=== PATIENT | female | born 1945 | race Hispanic/Latino ===

== ENCOUNTER → 2017-08-01 | Outpatient (CLI) | payer OTHER ==
[~2017-08-01] MED LIST: ACET-66 PO; GLYC1TAB11 PO; LISI40TA4 PO; LOVA40TA2 PO; MVIT PO; NAPR-1023 PO; OMEP40CA37 PO; PARO40TA PO; SOTA80TA PO
== END | disposition home or self-care (01) ==
LOC: SHCH 08:48
PROVIDERS: ATTEND Internal Medicine Cardiovascular Disease
DX: I11.0 Hypertensive heart disease with heart failure (principal); I35.1 Nonrheumatic aortic (valve) insufficiency; Z95.0 Presence of cardiac pacemaker
CPT/HCPCS: 93306

== ENCOUNTER → 2018-01-18 | Outpatient (CLI) | payer OTHER | END | disposition home or self-care (01) | LOC: RAH 07:38 | PROVIDERS: ATTEND Internal Medicine Gastroenterology | DX: K76.0 Fatty (change of) liver, not elsewhere classified (principal); N28.1 Cyst of kidney, acquired; I10 Essential (primary) hypertension; E78.5 Hyperlipidemia, unspecified | CPT/HCPCS: 76700 ==

== ENCOUNTER → 2018-03-12 | Outpatient (CLI) | payer OTHER, MEDICARE ==
[~2018-03-12] MED LIST changes: +REGADENOSON 0.4 MG/5 ML PF SYG IVP SCH
== END | disposition home or self-care (01) ==
LOC: SHCH 08:20
PROVIDERS: ATTEND Internal Medicine Cardiovascular Disease
DX: R06.00 Dyspnea, unspecified (principal); R07.89 Other chest pain; R53.83 Other fatigue
CPT/HCPCS: 78452; 93017; 96374; A9500 ×2; J2785

== ENCOUNTER → 2018-03-19 | Outpatient (CLI) | payer OTHER, MEDICARE ==
[~2018-03-19] MED LIST changes: -REGADENOSON 0.4 MG/5 ML PF SYG IVP SCH
== END | disposition home or self-care (01) ==
LOC: SHCH 10:00
PROVIDERS: ATTEND Internal Medicine Cardiovascular Disease
DX: I87.2 Venous insufficiency (chronic) (peripheral) (principal)
CPT/HCPCS: 93970

== ENCOUNTER → 2019-08-22 | Outpatient (CLI) | payer OTHER, MEDICARE ==
[~2019-08-22] MED LIST changes: +OMEP40CA13 PO; -OMEP40CA37 PO
== END | disposition home or self-care (01) ==
LOC: RAH 08:48
PROVIDERS: ATTEND Internal Medicine
DX: I35.0 Nonrheumatic aortic (valve) stenosis (principal); I11.9 Hypertensive heart disease without heart failure; Z95.0 Presence of cardiac pacemaker
CPT/HCPCS: 71046; 93306; 93356

== ENCOUNTER 2019-09-02 09:37 | Observation (INO) | payer OTHER, MEDICARE ==
[~2019-09-02] VITALS: Ht 160 cm; Wt 82.6 kg
[2019-09-02 09:58] LABS: BASOPHILS % (AUTO) 0.7 % (0.0-5.0); EOSINOPHILS % (AUTO) 1.9 % (0.0-8.0); HEMATOCRIT 38.2 % (36-48); LYMPHOCYTES % (AUTO) 24.2 % (21.0-51.0); MEAN CORPUSCULAR HEMOGLOBIN 31.7 pg (27.0-33.0); MONOCYTES % (AUTO) 6.8 % (3.0-13.0); NEUTROPHILS % (AUTO) 65.9 % (40.0-77.0); PLATELET COUNT (AUTO) 199 K/uL (130-400); RED BLOOD CELL COUNT(AUTO) 3.98 MIL/uL (4.00-5.50); WHITE BLOOD COUNT (AUTO) 9.1 K/uL (4.8-10.8)
[2019-09-02 10:02] LABS: CREATININE 1.2 mg/dL (0.5-1.5); POTASSIUM 4.5 mmol/L (3.5-5.1)
[2019-09-02 10:06] LABS: INR 0.89 (0.85-1.15); PARTIAL THROMBOPLASTIN TIME 24.5 SEC (26.3-35.5); PROTHROMBIN TIME 9.7 SEC (9.6-11.6)
[2019-09-02 10:07] LABS: ALBUMIN 3.8 g/dL (3.5-5.0); BILIRUBIN,TOTAL 0.3 mg/dL (0.2-1.0); TOTAL PROTEIN, SERUM 7.2 g/dL (6.0-8.3)
--- NOTE | 2019-09-02 12:30 | NUR ---
DYSPHAGIA IRA COMPLETED NO S/S OF ASPIRATION AT THIS TIME. RECOMMEND REGULAR SOLIDS, THIN LIQUIDS, PILLS WHOLE WITH LIQUIDS TOLERATED. CORE PASTER REVIEWED RESULTS AND RECOMMENDATIONS WITH Pt AND NURSE MARTIN. Pt WAS EDUCATED ON RISKS AND CONSEQUENCES OF ASPIRATION. ALL QUESTIONS ANSWERED AT THIS TIME. Addendum: 09/02/[address] TYRELL LEÓN Amended: Links added.
[2019-09-02] MEDS ORDERED: SODIUM CHLORIDE 0.9% 10 ML VIAL IVP PRN (14:00)
[2019-09-02] MEDS ORDERED: NITR0.4T SL (15:12)
[2019-09-02] MEDS ORDERED: FAMO40TA7 PO (15:12)
[2019-09-02] MEDS ORDERED: ALLO300T2 PO (15:12)
[2019-09-02] MEDS ORDERED: MONT10TA26 PO (15:12)
[2019-09-02] MEDS ORDERED: GABA300C PO (15:12)
[2019-09-02] MEDS ORDERED: PANT40TA25 PO (15:12)
[2019-09-02] MEDS ORDERED: AMLO2.5T4 PO (15:12)
[2019-09-02] MEDS ORDERED: LOVA40TA2 PO (15:12)
[2019-09-02] MEDS ORDERED: TRAZ-187 PO (15:12)
[2019-09-02] MEDS ORDERED: LORA10TA7 PO (15:12)
[2019-09-02] MEDS ORDERED: ROPI0.5T7 PO (15:12)
[2019-09-02] MEDS ORDERED: PRED10TA3 PO (15:12)
[2019-09-02] MEDS ORDERED: MAG HYDROX/AL HYDROX/SIMETH ES 30 ML SUSP UDCUP PO PRN (15:15)
[2019-09-02] MEDS ORDERED: LACTULOSE 20 GM/30 ML UDCUP PO PRN (15:15)
[2019-09-02] MEDS ORDERED: PANTOPRAZOLE SODIUM 40 MG TABLET.DR PO PRN (15:15)
[2019-09-02] MEDS ORDERED: ONDANSETRON HCL 4 MG/2 ML VIAL IV PRN (15:15)
[2019-09-02] MEDS ORDERED: NITROGLYCERIN 0.4 MG SL TAB SL PRN (15:15)
[2019-09-02] MEDS ORDERED: ACETAMINOPHEN 325 MG TAB PO PRN ×2 (15:15)
[2019-09-02] MEDS ORDERED: LORATADINE 10 MG TABLET PO PRN (15:15)
[2019-09-02] MEDS ORDERED: ROPINIROLE HCL 0.25 MG TABLET PO PRN (15:15)
[2019-09-02 15:25] VITALS: BP 161/80
[2019-09-02] MEDS ORDERED: LIDOCAINE HCL-MPF 1% 2ML VIAL IV PRN (15:30)
[2019-09-02] MEDS ORDERED: POTASSIUM CHLORIDE 10% ELIXIR 20 MEQ/15 ML UDCUP PO PRN (15:30)
[2019-09-02] MEDS ORDERED: POTASSIUM CHLORIDE 20 MEQ ERTAB PO PRN (15:30)
[2019-09-02] MEDS ORDERED: POTASSIUM CHLORIDE 20MEQ/100ML 100 ML IV PRN (15:30)
[2019-09-02] MEDS: SODIUM CHLORIDE 0.9% 1000ML 1,000 ML IV SCH (16:26)
[2019-09-02] MEDS ORDERED: LATA7.5D OP (19:48)
[2019-09-02] MEDS ORDERED: BRIM5DRO4 OP (20:00)
[2019-09-02] MEDS: SOTALOL HCL 80 MG TABLET PO SCH (20:11)
[2019-09-02] MEDS: GABAPENTIN 300 MG CAPSULE PO SCH (20:12)
[2019-09-02 20:37] VITALS: BP 127/67
[2019-09-02] MEDS ORDERED: FAMOTIDINE 20MG TAB 20 MG TAB PO SCH (21:00)
[2019-09-02] MEDS ORDERED: ATORVASTATIN CALCIUM 10 MG TABLET PO SCH (21:00)
[2019-09-03 00:19] VITALS: BP 169/77
[2019-09-03] MEDS: SODIUM CHLORIDE 0.9% 1000ML 1,000 ML IV SCH ×2 (00:49→16:56)
[2019-09-03 04:00] VITALS: BP 136/56
[2019-09-03 08:00] VITALS: BP 139/57
[2019-09-03] MEDS ORDERED: PAROXETINE HCL 20 MG TABLET PO SCH (09:00)
[2019-09-03] MEDS ORDERED: AMLODIPINE BESYLATE 2.5 MG TAB PO SCH (09:00)
[2019-09-03] MEDS ORDERED: MONTELUKAST SODIUM 10 MG TAB PO SCH (09:00)
[2019-09-03] MEDS ORDERED: ALLOPURINOL 300 MG TABLET PO SCH (09:00)
[2019-09-03] MEDS ORDERED: LISINOPRIL 40 MG TABLET PO SCH (09:00)
[2019-09-03] MEDS ORDERED: ASPIRIN 325 MG TABLET PO SCH (09:00)
[2019-09-03] MEDS ORDERED: TRAZODONE HCL 100 MG TABLET PO SCH (09:00)
[2019-09-03] MEDS ORDERED: ENOXAPARIN SODIUM 40 MG/0.4 ML SYRINGE SQ SCH (09:00)
[2019-09-03] MEDS ORDERED: GLUCAGON 1MG KIT 1 MG ML IM PRN (09:15)
[2019-09-03] MEDS ORDERED: DEXTROSE 50%-WATER 50 ML DISP.SYRIN IV PRN (09:15)
[2019-09-03] MEDS: SOTALOL HCL 80 MG TABLET PO SCH (09:39)
[2019-09-03] MEDS: GABAPENTIN 300 MG CAPSULE PO SCH ×2 (09:40→14:36)
--- NOTE | 2019-09-03 10:55 | NUR ---
DCP CM spoke to pt's son Justin Jones [phone] discussed dc plans. Per son, pt is semi-independent prior to admission, lives at home alone, son and family lives next door to pt. Pt has a walker, electric wheelchair, as well as handicapped restroom w/bench. Denies any other equipments/services. Feels safe to go back home, son and family able to assist with transportation and needs as necessary. Discussed possible short term rehab for PT, son verbalized he prefers to take pt home due to covid, pt has good support system, agreeable to HH for PT if necessary, will decide once MD give recommendations. Pt currently pending PT eval today. DC plan to home vs home w/HH. CM to cont to follow up. Addendum: 09/03/19 at 1058 by NICKOLAS GRAY LVN CM Amended: Links added.
[2019-09-03 11:09] LABS: APPEARANCE,URINE Cloudy (CLEAR); BILIRUBIN,URINE Negative (NEGATIVE); COLOR,URINE Yellow (YELLOW); GLUCOSE, URINE (UA) Negative (NEGATIVE); KETONES,URINE Negative (NEGATIVE); LEUKOCYTE ESTERASE ,URINE Moderate (NEGATIVE); NITRATE,URINE Positive (NEGATIVE); OCCULT BLOOD,URINE Negative (NEGATIVE); PH,URINE 6.5 (5.0-8.0); PROTEIN,URINE Negative (NEGATIVE); UROBILINOGEN,URINE 0.2 mg/dL (0.2-1.0)
[2019-09-03 11:29] LABS: AMPHET/METH SCREEN,URINE NEGATIVE (NEGATIVE); BARBITURATE SCREEN, URINE NEGATIVE (NEGATIVE); BENZODIAZEPINES SCREEN,URINE NEGATIVE (NEGATIVE); CANNABINOID SCREEN,URINE NEGATIVE (NEGATIVE); COCAINE SCREEN,URINE NEGATIVE (NEGATIVE); OPIATE SCREEN,URINE NEGATIVE (NEGATIVE); PHENCYCLIDINE SCREEN,URINE NEGATIVE (NEGATIVE)
[2019-09-03] MEDS: INSULIN HUMULIN R 100 UNIT/ML 3ML SQ SCH ×2 (11:30→16:30)
[2019-09-03 11:44] LABS: BACTERIA,URINE Many /HPF (None Seen); RBC,URINE 0-1 /HPF (0-1)
[2019-09-03 11:45] LABS: SQUAMOUS EPITHELIAL CELL,UR Rare /HPF (0-2)
[2019-09-03 12:00] VITALS: BP 154/67
[2019-09-03] MEDS ORDERED: IOHEXOL-350 75 ML VIAL IV ONE (12:25)
[2019-09-03 16:00] VITALS: BP 150/83
[2019-09-03] MEDS ORDERED: AEC81 PO (17:13)
[2019-09-03] MEDS ORDERED: CLOP75TA32 PO (17:13)
--- NOTE | 2019-09-03 18:45 | NUR ---
Discharge instructions, new medications and follow up appointments reviewed. Dr. Zamudio's office closed, unable to schedule appointment, patient advised to call office to schedule follow up in 2-3 days. Patient verbalized understanding of instructions and medications. PIV to RAC removed, bleeding controlled and dressing applied. Patient escorted to emergency entrance via wheelchair where family transported to home.
== END 2019-09-03 19:10 | disposition home or self-care (01) ==
LOC: EDH 09:37 → EDHIP 10:50 → 3AH 15:18
PROVIDERS: ADMIT Internal Medicine; ATTEND Internal Medicine
DX: I63.9 Cerebral infarction, unspecified (principal); E11.22 Type 2 diabetes mellitus with diabetic chronic kidney disease; E11.42 Type 2 diabetes mellitus with diabetic polyneuropathy; H40.20X0 Unspecified primary angle-closure glaucoma, stage unspecified; I13.10 Hypertensive heart and chronic kidney disease without heart failure, with stage 1 through stage 4 chronic kidney disease, or unspecified chronic kidney disease; N18.2 Chronic kidney disease, stage 2 (mild); I25.10 Atherosclerotic heart disease of native coronary artery without angina pectoris; E78.2 Mixed hyperlipidemia; F41.9 Anxiety disorder, unspecified; F32.1 Major depressive disorder, single episode, moderate; I48.91 Unspecified atrial fibrillation; I49.5 Sick sinus syndrome; J30.9 Allergic rhinitis, unspecified; J44.9 Chronic obstructive pulmonary disease, unspecified; K21.9 Gastro-esophageal reflux disease without esophagitis; K44.9 Diaphragmatic hernia without obstruction or gangrene; K90.0 Celiac disease; M19.90 Unspecified osteoarthritis, unspecified site; E04.2 Nontoxic multinodular goiter; R47.02 Dysphasia; M46.1 Sacroiliitis, not elsewhere classified; M48.061 Spinal stenosis, lumbar region without neurogenic claudication; Z79.02 Long term (current) use of antithrombotics/antiplatelets; Z86.73 Personal history of transient ischemic attack (TIA), and cerebral infarction without residual deficits; Z90.49 Acquired absence of other specified parts of digestive tract; Z90.710 Acquired absence of both cervix and uterus; Z95.0 Presence of cardiac pacemaker; K52.9 Noninfective gastroenteritis and colitis, unspecified
CPT/HCPCS: 36415; 70450; 70496; 70498; 71045; 80053; 80305; 81001; 82550; 82948 ×2; 83880; 84484; 85025; 85610; 85730; 87077; 87088; 87186; 92610; 93005; 93880; 96360; 96361 ×2; 96372; 97039; 97116; 97161; 99285; A4600; G0378 ×15; G8978; G8979; G8980; G8981; G8982; G8983; J1650; J7030 ×2; Q9967

== ENCOUNTER → 2019-09-30 | Outpatient (CLI) | payer OTHER, MEDICARE ==
[~2019-09-30] MED LIST changes: -ACET-66 PO; +AEC81 PO; +ALLO300T2 PO; +AMLO2.5T4 PO; +BRIM5DRO4 OP; +CLOP75TA32 PO; +FAMO40TA7 PO; +GABA300C PO; -GLYC1TAB11 PO; +LATA7.5D OP; +LORA10TA7 PO; +MONT10TA26 PO; -MVIT PO; -NAPR-1023 PO; +NITR0.4T SL; -OMEP40CA13 PO; +PANT40TA25 PO; +REGADENOSON 0.4 MG/5 ML PF SYG IVP SCH; +ROPI0.5T7 PO; +TRAZ-187 PO
== END | disposition home or self-care (01) ==
LOC: SHCH 08:04
PROVIDERS: ATTEND Internal Medicine Cardiovascular Disease
DX: I20.9 Angina pectoris, unspecified (principal); R07.9 Chest pain, unspecified; R06.00 Dyspnea, unspecified; R53.83 Other fatigue
CPT/HCPCS: 78452; 93017; A9500 ×2; J2785; 96374

== ENCOUNTER 2020-03-04 16:41 | Inpatient (IN) | payer OTHER, MEDICARE ==
[~2020-03-04] VITALS: Ht 165.1 cm; Wt 81.6 kg
[~2020-03-04 16:41] MED LIST changes: -MONT10TA26 PO; +MONT10TA96 PO; -PANT40TA25 PO; +PANT40TA54 PO; -REGADENOSON 0.4 MG/5 ML PF SYG IVP SCH
[2020-03-04 17:41] LABS: BASOPHILS % (AUTO) 0.2 % (0.0-5.0); HEMATOCRIT 38.7 % (36-48); LYMPHOCYTES % (AUTO) 13.8 % (21.0-51.0); MEAN CORPUSCULAR HEMOGLOBIN 32.4 pg (27.0-33.0); MEAN CORPUSCULAR HGB CONC 34.1 g/dL (32.0-36.0); MEAN CORPUSCULAR VOLUME 95.1 fL (79-99); MONOCYTES % (AUTO) 4.4 % (3.0-13.0); NEUTROPHILS % (AUTO) 80.9 % (40.0-77.0); PLATELET COUNT (AUTO) 248 K/uL (130-400); RED BLOOD CELL COUNT(AUTO) 4.07 MIL/uL (4.00-5.50); RED CELL DISTRIBUTION WIDTH 12.9 % (11.0-15.5); WHITE BLOOD COUNT (AUTO) 9.5 K/uL (4.8-10.8)
[2020-03-04] MEDS ORDERED: DEXAMETHASONE SOD PHOSPHATE 10MG/ML 1ML VIAL ONE (17:43)
[2020-03-04] MEDS ORDERED: ALBUTEROL INHALER 90MCG/INH IH ONE (17:43)
[2020-03-04 17:44] LABS: ABG BASE EXCESS -6.3 mmol/L (-2.0-3.0); ABG HCO3 16.9 mmol/L (21.0-28.0); ABG OXYGEN SATURATION 84.2 % (95.0-99.0); ABG PCO2 28 mmHg (32-45)
[2020-03-04] MEDS ORDERED: AZITHROMYCIN 500MG+NS 250ML 250 ML IV ONE (17:44)
[2020-03-04] MEDS ORDERED: CEFTRIAXONE SODIUM 1 GM ONE (17:44)
[2020-03-04] MEDS ORDERED: SODIUM CHLORIDE 0.9% 50 ML IV ONE ×2 (17:45→18:45)
[2020-03-04 17:51] LABS: INR 0.94 (0.85-1.15); PARTIAL THROMBOPLASTIN TIME 29.6 SEC (26.3-35.5); PROTHROMBIN TIME 10.2 SEC (9.6-11.6)
[2020-03-04 18:04] LABS: ALANINE AMINOTRANSFERASE 172 U/L (12-78); ALBUMIN 3.3 g/dL (3.5-5.0); ASPARTATE AMINOTRANSFERASE 237 U/L (10-37); BILIRUBIN,TOTAL 0.6 mg/dL (0.2-1.0); CARBON DIOXIDE 21 mmol/L (21-32); CHLORIDE 94 mmol/L (101-111); CREATINE KINASE, TOTAL 233 U/L (21-232); CREATININE 5.2 mg/dL (0.5-1.5); GLOMERULAR FILTR. RATE CALC 9 mL/min (>60); GLUCOSE,RANDOM 132 mg/dL (70-105); LACTATE DEHYDROGENASE 579 U/L (81-234); MYOGLOBIN 866 ng/mL (10-92); SODIUM SERUM 132 mmol/L (136-145); TOTAL PROTEIN, SERUM 8.5 g/dL (6.0-8.3); TROPONIN I < 0.04 ng/mL (0.00-0.06); UREA NITROGEN, BLOOD 69 mg/dL (7-18)
[2020-03-04 18:07] LABS: POTASSIUM 2.8 mmol/L (3.5-5.1)
[2020-03-04] MEDS ORDERED: POTASSIUM CHLORIDE 20 MEQ ERTAB PO ONE (18:27)
[2020-03-04] MEDS ORDERED: POTASSIUM CHLORIDE 20MEQ/100ML 100 ML IV ONE (18:38)
[2020-03-04] MEDS ORDERED: LIDOCAINE HCL-MPF 1% 2ML VIAL ONE (18:43)
[2020-03-04 18:52] LABS: ERYTHROCYTE SEDIMENTATION RATE 104 MM/HR (0-30)
[2020-03-04] MEDS: INSULIN HUMULIN R 100 UNIT/ML 3ML SQ SCH (21:00)
[2020-03-04] MEDS ORDERED: ERGOCALCIFEROL (VITAMIN D2) 50,000 UNIT CAPSULE PO ONE (21:00)
[2020-03-04] MEDS: CEFTRIAXONE SODIUM 1 GM IV SCH (21:00)
[2020-03-04] MEDS ORDERED: ONDANSETRON HCL 4 MG/2 ML VIAL IV PRN (21:00)
[2020-03-04] MEDS ORDERED: HYDRALAZINE HCL 20 MG/ML VIAL IV PRN (21:00)
[2020-03-04] MEDS: PHARMACY COMMUNICATION MISC SCH (21:00)
[2020-03-04] MEDS ORDERED: ALBUTEROL INHALER 90MCG/INH IH PRN (21:00)
[2020-03-04] MEDS ORDERED: ACETAMINOPHEN 325 MG TAB PO PRN (21:00)
[2020-03-04] MEDS ORDERED: LACTULOSE 20 GM/30 ML UDCUP PO PRN (21:00)
[2020-03-04] MEDS ORDERED: DEXTROSE 50%-WATER 50 ML DISP.SYRIN IV PRN (21:00)
[2020-03-04] MEDS: METHYLPREDNISOLONE SOD SUCC 40MG/ML 1ML IVP SCH (21:00)
[2020-03-04] MEDS ORDERED: GLUCAGON 1MG KIT 1 MG ML IM PRN (21:00)
[2020-03-04] MEDS: AZITHROMYCIN 500MG+NS 250ML 250 ML IV SCH (21:00)
[2020-03-04] MEDS: HEPARIN SODIUM 5000UNIT/ML 1ML VIAL SQ SCH (21:45)
[2020-03-04] MEDS ORDERED: HEPARIN SODIUM 5000UNIT/ML 1ML VIAL ONE (22:21)
[2020-03-05] VITALS (7 sets, daily range): BP systolic 93–123; BP diastolic 35–65
[2020-03-05 04:36] LABS: BASOPHILS % (AUTO) 0.2 % (0.0-5.0); HEMATOCRIT 34.9 % (36-48); LYMPHOCYTES % (AUTO) 9.6 % (21.0-51.0); MEAN CORPUSCULAR HEMOGLOBIN 31.8 pg (27.0-33.0); MEAN CORPUSCULAR HGB CONC 33.2 g/dL (32.0-36.0); MEAN CORPUSCULAR VOLUME 95.6 fL (79-99); MONOCYTES % (AUTO) 1.6 % (3.0-13.0); NEUTROPHILS % (AUTO) 88.1 % (40.0-77.0); PLATELET COUNT (AUTO) 267 K/uL (130-400); RED BLOOD CELL COUNT(AUTO) 3.65 MIL/uL (4.00-5.50); RED CELL DISTRIBUTION WIDTH 12.7 % (11.0-15.5); WHITE BLOOD COUNT (AUTO) 6.2 K/uL (4.8-10.8)
[2020-03-05 05:00] LABS: ALBUMIN 2.8 g/dL (3.5-5.0); BILIRUBIN,TOTAL 0.4 mg/dL (0.2-1.0); CREATININE 5.7 mg/dL (0.5-1.5); CRP QUANTITATIVE 207.3 mg/L (0.00-9.0); POTASSIUM 3.5 mmol/L (3.5-5.1); TOTAL PROTEIN, SERUM 7.5 g/dL (6.0-8.3)
[2020-03-05] MEDS: PHARMACY COMMUNICATION MISC SCH ×3 (05:00→21:00)
[2020-03-05] MEDS ORDERED: METHYLPREDNISOLONE SOD SUCC 125MG/2ML VIAL ONE (06:05)
[2020-03-05] MEDS: INSULIN HUMULIN R 100 UNIT/ML 3ML SQ SCH ×4 (06:14→21:23)
[2020-03-05] MEDS: METHYLPREDNISOLONE SOD SUCC 40MG/ML 1ML IVP SCH (06:42)
[2020-03-05] MEDS ORDERED: ENOXAPARIN SODIUM 40 MG/0.4 ML SYRINGE SQ SCH (09:00)
[2020-03-05] MEDS: SODIUM CHLORIDE 0.9% 1000ML 1,000 ML IV SCH (09:52)
[2020-03-05] MEDS: Vitamin B Complex/Vit C/Folic Acid PO SCH (09:53)
[2020-03-05] MEDS: ASCORBIC ACID 500 MG TAB PO SCH (09:53)
[2020-03-05] MEDS: FAMOTIDINE 20MG TAB 20 MG TAB PO SCH (09:53)
[2020-03-05] MEDS: ZINC SULFATE 220 CAPSULE PO SCH (09:54)
[2020-03-05] MEDS: HEPARIN SODIUM 5000UNIT/ML 1ML VIAL SQ SCH ×2 (10:05→21:22)
[2020-03-05] MEDS: DEXAMETHASONE SOD PHOSPHATE 4 MG/ML 1ML VIAL IVP SCH ×2 (10:14→21:21)
[2020-03-05 14:22] LABS: CREATININE,URINE RANDOM 278 mg/dL (30-135); SODIUM,URINE RANDOM 32 mmol/l (40-220)
[2020-03-05] MEDS ORDERED: SODIUM CHLORIDE 0.9% 250 ML IV ONE (14:50)
[2020-03-05] MEDS ORDERED: ROPINIROLE HCL 0.25 MG TABLET PO PRN (18:00)
[2020-03-05] MEDS: CEFTRIAXONE SODIUM 1 GM IV SCH (21:20)
[2020-03-05] MEDS: AZITHROMYCIN 500MG+NS 250ML 250 ML IV SCH (21:20)
[2020-03-05] MEDS: GABAPENTIN 300 MG CAPSULE PO SCH (21:21)
[2020-03-05 22:04] LABS: APPEARANCE,URINE SL CLOUDY (CLEAR); BILIRUBIN,URINE NEGATIVE (NEGATIVE); COLOR,URINE YELLOW (YELLOW); GLUCOSE, URINE (UA) NEGATIVE (NEGATIVE); KETONES,URINE NEGATIVE (NEGATIVE); LEUKOCYTE ESTERASE ,URINE NEGATIVE (NEGATIVE); NITRATE,URINE NEGATIVE (NEGATIVE); OCCULT BLOOD,URINE MODERATE (NEGATIVE); PROTEIN,URINE NEGATIVE (NEGATIVE); UROBILINOGEN,URINE 0.2 mg/dL (0.2-1.0)
[2020-03-05 22:09] LABS: AMORPHOUS SEDIMENT,UR Few /LPF (None Seen); BACTERIA,URINE Few /HPF (None Seen); MUCUS,URINE Few LPF (None Seen); SQUAMOUS EPITHELIAL CELL,UR 0-2 /HPF (0-2)
[2020-03-06 03:29] VITALS: BP 120/59
[2020-03-06] MEDS: SODIUM CHLORIDE 0.9% 1000ML 1,000 ML IV SCH (04:00)
[2020-03-06] MEDS: PHARMACY COMMUNICATION MISC SCH ×4 (04:05→23:09)
[2020-03-06 04:54] LABS: ABG BASE EXCESS -7.2 mmol/L (-2.0-3.0); ABG HCO3 16.4 mmol/L (21.0-28.0); ABG OXYGEN SATURATION 91.3 % (95.0-99.0); ABG PCO2 29 mmHg (32-45)
[2020-03-06 05:20] LABS: BASOPHILS % (AUTO) 0.1 % (0.0-5.0); HEMATOCRIT 36.3 % (36-48); LYMPHOCYTES % (AUTO) 5.8 % (21.0-51.0); MEAN CORPUSCULAR HGB CONC 33.3 g/dL (32.0-36.0); MONOCYTES % (AUTO) 3.6 % (3.0-13.0); NEUTROPHILS % (AUTO) 89.8 % (40.0-77.0); PLATELET COUNT (AUTO) 262 K/uL (130-400); RED BLOOD CELL COUNT(AUTO) 3.78 MIL/uL (4.00-5.50); RED CELL DISTRIBUTION WIDTH 12.6 % (11.0-15.5); WHITE BLOOD COUNT (AUTO) 14.3 K/uL (4.8-10.8)
[2020-03-06 05:39] LABS: ALBUMIN 2.9 g/dL (3.5-5.0); BILIRUBIN,TOTAL 0.2 mg/dL (0.2-1.0); CREATININE 4.5 mg/dL (0.5-1.5); CRP QUANTITATIVE 87.3 mg/L (0.00-9.0); MAGNESIUM 2.6 mg/dL (1.80-2.40); PHOSPHORUS 4.2 mg/dL (2.5-4.9); POTASSIUM 3.2 mmol/L (3.5-5.1); TOTAL PROTEIN, SERUM 7.9 g/dL (6.0-8.3); URIC ACID 8.9 mg/dL (2.6-7.2)
[2020-03-06] MEDS: INSULIN HUMULIN R 100 UNIT/ML 3ML SQ SCH ×4 (06:20→22:25)
[2020-03-06 06:45] LABS: HEMOGLOBIN A1C 7.1 % (4.0-6.0)
[2020-03-06 08:00] VITALS: BP 110/68
[2020-03-06] MEDS: Vitamin B Complex/Vit C/Folic Acid PO SCH (09:24)
[2020-03-06] MEDS: ASCORBIC ACID 500 MG TAB PO SCH (09:24)
[2020-03-06] MEDS: FAMOTIDINE 20MG TAB 20 MG TAB PO SCH (09:24)
[2020-03-06] MEDS: GABAPENTIN 300 MG CAPSULE PO SCH ×3 (09:25→22:24)
[2020-03-06] MEDS: ZINC SULFATE 220 CAPSULE PO SCH (09:25)
[2020-03-06] MEDS: DEXAMETHASONE SOD PHOSPHATE 4 MG/ML 1ML VIAL IVP SCH ×2 (09:25→22:23)
[2020-03-06] MEDS: HEPARIN SODIUM 5000UNIT/ML 1ML VIAL SQ SCH ×2 (10:04→22:26)
[2020-03-06 12:00] VITALS: BP 117/64
[2020-03-06 16:00] VITALS: BP 105/62
[2020-03-06 20:57] VITALS: BP 129/70
[2020-03-06 21:06] LABS: BASOPHILS % (AUTO) 0.1 % (0.0-5.0); HEMATOCRIT 33.9 % (36-48); LYMPHOCYTES % (AUTO) 4.8 % (21.0-51.0); MEAN CORPUSCULAR HEMOGLOBIN 31.9 pg (27.0-33.0); MEAN CORPUSCULAR HGB CONC 33.6 g/dL (32.0-36.0); NEUTROPHILS % (AUTO) 90.3 % (40.0-77.0); PLATELET COUNT (AUTO) 290 K/uL (130-400); RED BLOOD CELL COUNT(AUTO) 3.57 MIL/uL (4.00-5.50); RED CELL DISTRIBUTION WIDTH 12.7 % (11.0-15.5); WHITE BLOOD COUNT (AUTO) 14.5 K/uL (4.8-10.8)
[2020-03-06] MEDS: CEFTRIAXONE SODIUM 1 GM IV SCH (22:23)
[2020-03-06] MEDS: AZITHROMYCIN 500MG+NS 250ML 250 ML IV SCH (22:23)
[2020-03-06] MEDS: SODIUM BICARBONATE 650 MG TAB PO SCH (22:24)
[2020-03-07] VITALS (7 sets, daily range): BP systolic 115–143; BP diastolic 53–82
[2020-03-07 05:03] LABS: BASOPHILS % (AUTO) 0.1 % (0.0-5.0); HEMATOCRIT 33.8 % (36-48); LYMPHOCYTES % (AUTO) 5.3 % (21.0-51.0); MEAN CORPUSCULAR HEMOGLOBIN 32.6 pg (27.0-33.0); MEAN CORPUSCULAR HGB CONC 34.3 g/dL (32.0-36.0); MEAN CORPUSCULAR VOLUME 94.9 fL (79-99); MONOCYTES % (AUTO) 3.5 % (3.0-13.0); NEUTROPHILS % (AUTO) 89.4 % (40.0-77.0); PLATELET COUNT (AUTO) 310 K/uL (130-400); RED BLOOD CELL COUNT(AUTO) 3.56 MIL/uL (4.00-5.50); RED CELL DISTRIBUTION WIDTH 12.7 % (11.0-15.5); WHITE BLOOD COUNT (AUTO) 13.3 K/uL (4.8-10.8)
[2020-03-07 05:22] LABS: ALBUMIN 2.5 g/dL (3.5-5.0); BILIRUBIN,TOTAL 0.2 mg/dL (0.2-1.0); CRP QUANTITATIVE 46.9 mg/L (0.00-9.0); POTASSIUM 3.4 mmol/L (3.5-5.1)
[2020-03-07] MEDS: INSULIN HUMULIN R 100 UNIT/ML 3ML SQ SCH ×4 (06:30→21:17)
[2020-03-07] MEDS: Vitamin B Complex/Vit C/Folic Acid PO SCH (08:47)
[2020-03-07] MEDS: SODIUM BICARBONATE 650 MG TAB PO SCH ×2 (08:47→20:34)
[2020-03-07] MEDS: FAMOTIDINE 20MG TAB 20 MG TAB PO SCH (08:48)
[2020-03-07] MEDS: ZINC SULFATE 220 CAPSULE PO SCH (08:48)
[2020-03-07] MEDS: ASCORBIC ACID 500 MG TAB PO SCH (08:48)
[2020-03-07] MEDS: DEXAMETHASONE SOD PHOSPHATE 4 MG/ML 1ML VIAL IVP SCH ×2 (08:48→20:33)
[2020-03-07] MEDS: GABAPENTIN 300 MG CAPSULE PO SCH ×3 (08:54→20:35)
[2020-03-07] MEDS: HEPARIN SODIUM 5000UNIT/ML 1ML VIAL SQ SCH ×2 (08:55→21:16)
[2020-03-07] MEDS: PHARMACY COMMUNICATION MISC SCH (13:00)
[2020-03-07] MEDS: AZITHROMYCIN 500MG+NS 250ML 250 ML IV SCH (20:32)
[2020-03-07] MEDS: CEFTRIAXONE SODIUM 1 GM IV SCH (20:32)
[2020-03-07 21:00] LABS: BASOPHILS % (AUTO) 0.4 % (0.0-5.0); LYMPHOCYTES % (AUTO) 5.6 % (21.0-51.0); MEAN CORPUSCULAR HEMOGLOBIN 32.1 pg (27.0-33.0); MEAN CORPUSCULAR HGB CONC 33.3 g/dL (32.0-36.0); MEAN CORPUSCULAR VOLUME 96.3 fL (79-99); MONOCYTES % (AUTO) 5.8 % (3.0-13.0); NEUTROPHILS % (AUTO) 85.5 % (40.0-77.0); PLATELET COUNT (AUTO) 300 K/uL (130-400); RED BLOOD CELL COUNT(AUTO) 3.74 MIL/uL (4.00-5.50); RED CELL DISTRIBUTION WIDTH 12.9 % (11.0-15.5); WHITE BLOOD COUNT (AUTO) 13.4 K/uL (4.8-10.8)
[2020-03-08] VITALS (7 sets, daily range): BP systolic 130–160; BP diastolic 53–85
[2020-03-08 05:05] LABS: CREATININE 2.3 mg/dL (0.5-1.5); CRP QUANTITATIVE 33.3 mg/L (0.00-9.0); POTASSIUM 3.4 mmol/L (3.5-5.1)
[2020-03-08] MEDS: INSULIN HUMULIN R 100 UNIT/ML 3ML SQ SCH ×5 (06:44→22:03)
[2020-03-08] MEDS ORDERED: DEXAMETHASONE 4 MG TAB PO SCH (09:00)
[2020-03-08] MEDS: Vitamin B Complex/Vit C/Folic Acid PO SCH (09:18)
[2020-03-08] MEDS: ZINC SULFATE 220 CAPSULE PO SCH (09:18)
[2020-03-08] MEDS: SODIUM BICARBONATE 650 MG TAB PO SCH ×2 (09:18→21:11)
[2020-03-08] MEDS: FAMOTIDINE 20MG TAB 20 MG TAB PO SCH (09:18)
[2020-03-08] MEDS: PHARMACY COMMUNICATION MISC SCH ×4 (09:18→19:52)
[2020-03-08] MEDS: ASCORBIC ACID 500 MG TAB PO SCH (09:19)
[2020-03-08] MEDS: GABAPENTIN 300 MG CAPSULE PO SCH ×3 (09:19→21:11)
[2020-03-08] MEDS: DEXAMETHASONE SOD PHOSPHATE 4 MG/ML 1ML VIAL IVP SCH ×2 (09:20→21:11)
[2020-03-08] MEDS: HEPARIN SODIUM 5000UNIT/ML 1ML VIAL SQ SCH ×2 (09:21→21:28)
[2020-03-08] MEDS: ACETAMINOPHEN 325 MG TAB PO PRN (18:46)
[2020-03-08] MEDS: AZITHROMYCIN 500MG+NS 250ML 250 ML IV SCH (21:10)
[2020-03-08] MEDS: CEFTRIAXONE SODIUM 1 GM IV SCH (21:10)
[2020-03-08] MEDS: INSULIN GLARGINE 100 UNITS/ML 10 ML VIAL SQ SCH (21:28)
[2020-03-09 03:31] VITALS: BP 130/72
[2020-03-09] MEDS: PHARMACY COMMUNICATION MISC SCH ×3 (05:00→21:00)
[2020-03-09 06:00] LABS: HEMATOCRIT 37.3 % (36-48); MEAN CORPUSCULAR HEMOGLOBIN 32.2 pg (27.0-33.0); MEAN CORPUSCULAR HGB CONC 34.3 g/dL (32.0-36.0); PLATELET COUNT (AUTO) 332 K/uL (130-400); RED BLOOD CELL COUNT(AUTO) 3.97 MIL/uL (4.00-5.50); RED CELL DISTRIBUTION WIDTH 12.6 % (11.0-15.5); WHITE BLOOD COUNT (AUTO) 13.2 K/uL (4.8-10.8)
[2020-03-09 06:01] LABS: BASOPHILS % (AUTO) 0.7 % (0.0-5.0); LYMPHOCYTES % (AUTO) 7.5 % (21.0-51.0); MONOCYTES % (AUTO) 4.2 % (3.0-13.0); NEUTROPHILS % (AUTO) 81.9 % (40.0-77.0)
[2020-03-09 06:12] LABS: CRP QUANTITATIVE 18.5 mg/L (0.00-9.0)
[2020-03-09] MEDS: INSULIN HUMULIN R 100 UNIT/ML 3ML SQ SCH ×7 (06:17→21:45)
[2020-03-09 07:13] LABS: ERYTHROCYTE SEDIMENTATION RATE 105 MM/HR (0-30)
[2020-03-09 08:00] VITALS: BP 94/56
[2020-03-09] MEDS: Vitamin B Complex/Vit C/Folic Acid PO SCH (09:04)
[2020-03-09] MEDS: ZINC SULFATE 220 CAPSULE PO SCH (09:04)
[2020-03-09] MEDS: GABAPENTIN 300 MG CAPSULE PO SCH ×3 (09:04→21:06)
[2020-03-09] MEDS: SODIUM BICARBONATE 650 MG TAB PO SCH ×2 (09:04→21:05)
[2020-03-09] MEDS: FAMOTIDINE 20MG TAB 20 MG TAB PO SCH (09:04)
[2020-03-09] MEDS: ASCORBIC ACID 500 MG TAB PO SCH (09:05)
[2020-03-09] MEDS: DEXAMETHASONE SOD PHOSPHATE 4 MG/ML 1ML VIAL IVP SCH ×2 (09:05→21:06)
[2020-03-09] MEDS: HEPARIN SODIUM 5000UNIT/ML 1ML VIAL SQ SCH ×2 (09:08→21:17)
[2020-03-09 12:08] LABS: CREATININE 1.8 mg/dL (0.5-1.5); POTASSIUM 3.4 mmol/L (3.5-5.1)
[2020-03-09 12:51] VITALS: BP 134/72
[2020-03-09 16:36] VITALS: BP 141/77
[2020-03-09 20:21] VITALS: BP 155/72
[2020-03-09] MEDS: CEFTRIAXONE SODIUM 1 GM IV SCH (21:05)
[2020-03-09] MEDS: AZITHROMYCIN 500MG+NS 250ML 250 ML IV SCH (21:05)
[2020-03-09] MEDS: INSULIN GLARGINE 100 UNITS/ML 10 ML VIAL SQ SCH (21:46)
[2020-03-10 01:38] VITALS: BP 143/72
[2020-03-10 04:11] VITALS: BP 183/77
[2020-03-10] MEDS: PHARMACY COMMUNICATION MISC SCH ×3 (05:00→21:18)
[2020-03-10 05:22] LABS: BASOPHILS % (AUTO) 0.2 % (0.0-5.0); HEMATOCRIT 38.4 % (36-48); MEAN CORPUSCULAR HEMOGLOBIN 31.6 pg (27.0-33.0); MEAN CORPUSCULAR HGB CONC 33.9 g/dL (32.0-36.0); MEAN CORPUSCULAR VOLUME 93.4 fL (79-99); MONOCYTES % (AUTO) 3.4 % (3.0-13.0); NEUTROPHILS % (AUTO) 80.2 % (40.0-77.0); NUCLEATED RED BLOOD CELLS 0.3 % (0.0-0.19); PLATELET COUNT (AUTO) 344 K/uL (130-400); RED BLOOD CELL COUNT(AUTO) 4.11 MIL/uL (4.00-5.50); RED CELL DISTRIBUTION WIDTH 12.4 % (11.0-15.5); WHITE BLOOD COUNT (AUTO) 15.2 K/uL (4.8-10.8)
[2020-03-10 06:01] LABS: ALBUMIN 2.7 g/dL (3.5-5.0); BILIRUBIN,TOTAL 0.3 mg/dL (0.2-1.0); CREATININE 1.6 mg/dL (0.5-1.5); CRP QUANTITATIVE 16.9 mg/L (0.00-9.0); POTASSIUM 3.7 mmol/L (3.5-5.1); TOTAL PROTEIN, SERUM 7.5 g/dL (6.0-8.3)
[2020-03-10] MEDS: INSULIN HUMULIN R 100 UNIT/ML 3ML SQ SCH ×7 (06:32→21:18)
[2020-03-10 08:00] VITALS: BP 138/73
[2020-03-10] MEDS: FAMOTIDINE 20MG TAB 20 MG TAB PO SCH (09:17)
[2020-03-10] MEDS: GABAPENTIN 300 MG CAPSULE PO SCH ×3 (09:17→21:15)
[2020-03-10] MEDS: SODIUM BICARBONATE 650 MG TAB PO SCH (09:17)
[2020-03-10] MEDS: DEXAMETHASONE SOD PHOSPHATE 4 MG/ML 1ML VIAL IVP SCH ×2 (09:17→21:15)
[2020-03-10] MEDS: ZINC SULFATE 220 CAPSULE PO SCH (09:17)
[2020-03-10] MEDS: Vitamin B Complex/Vit C/Folic Acid PO SCH (09:17)
[2020-03-10] MEDS: ASCORBIC ACID 500 MG TAB PO SCH (09:17)
[2020-03-10] MEDS: HEPARIN SODIUM 5000UNIT/ML 1ML VIAL SQ SCH ×2 (09:40→21:19)
[2020-03-10 11:46] VITALS: BP 158/92
[2020-03-10 16:04] LABS: CREATININE 1.7 mg/dL (0.5-1.5); POTASSIUM 3.9 mmol/L (3.5-5.1)
[2020-03-10 16:49] VITALS: BP 159/73
[2020-03-10 20:19] VITALS: BP 115/62
[2020-03-10] MEDS: AZITHROMYCIN 500MG+NS 250ML 250 ML IV SCH (21:15)
[2020-03-10] MEDS: CEFTRIAXONE SODIUM 1 GM IV SCH (21:15)
[2020-03-10] MEDS: INSULIN GLARGINE 100 UNITS/ML 10 ML VIAL SQ SCH (21:17)
[2020-03-11] VITALS (7 sets, daily range): BP systolic 118–168; BP diastolic 61–97
[2020-03-11] MEDS: PHARMACY COMMUNICATION MISC SCH ×2 (02:18→13:00)
[2020-03-11 04:19] LABS: BASOPHILS % (AUTO) 0.8 % (0.0-5.0); HEMATOCRIT 35.6 % (36-48); LYMPHOCYTES % (AUTO) 7.8 % (21.0-51.0); MEAN CORPUSCULAR HEMOGLOBIN 31.5 pg (27.0-33.0); MEAN CORPUSCULAR HGB CONC 33.7 g/dL (32.0-36.0); MEAN CORPUSCULAR VOLUME 93.4 fL (79-99); MONOCYTES % (AUTO) 2.9 % (3.0-13.0); NEUTROPHILS % (AUTO) 78.6 % (40.0-77.0); NUCLEATED RED BLOOD CELLS 0.2 % (0.0-0.19); PLATELET COUNT (AUTO) 299 K/uL (130-400); RED BLOOD CELL COUNT(AUTO) 3.81 MIL/uL (4.00-5.50); RED CELL DISTRIBUTION WIDTH 12.4 % (11.0-15.5); WHITE BLOOD COUNT (AUTO) 14.8 K/uL (4.8-10.8)
[2020-03-11 04:58] LABS: ALBUMIN 2.5 g/dL (3.5-5.0); BILIRUBIN,TOTAL 0.3 mg/dL (0.2-1.0); CREATININE 1.8 mg/dL (0.5-1.5); CRP QUANTITATIVE 15.7 mg/L (0.00-9.0); POTASSIUM 3.7 mmol/L (3.5-5.1); TOTAL PROTEIN, SERUM 6.8 g/dL (6.0-8.3)
[2020-03-11] MEDS: INSULIN HUMULIN R 100 UNIT/ML 3ML SQ SCH ×7 (06:02→20:55)
[2020-03-11] MEDS: Vitamin B Complex/Vit C/Folic Acid PO SCH (08:43)
[2020-03-11] MEDS: ZINC SULFATE 220 CAPSULE PO SCH (08:43)
[2020-03-11] MEDS: FAMOTIDINE 20MG TAB 20 MG TAB PO SCH (08:43)
[2020-03-11] MEDS: GABAPENTIN 300 MG CAPSULE PO SCH ×3 (08:43→20:41)
[2020-03-11] MEDS: HEPARIN SODIUM 5000UNIT/ML 1ML VIAL SQ SCH ×2 (08:44→20:43)
[2020-03-11] MEDS: ASCORBIC ACID 500 MG TAB PO SCH (08:44)
[2020-03-11] MEDS: DEXAMETHASONE SOD PHOSPHATE 4 MG/ML 1ML VIAL IVP SCH ×2 (08:44→20:41)
[2020-03-11] MEDS: AZITHROMYCIN 500MG+NS 250ML 250 ML IV SCH (20:36)
[2020-03-11] MEDS: CEFTRIAXONE SODIUM 1 GM IV SCH (20:36)
[2020-03-11] MEDS: INSULIN GLARGINE 100 UNITS/ML 10 ML VIAL SQ SCH (20:49)
[2020-03-12 03:00] VITALS: BP 179/79
[2020-03-12] MEDS ORDERED: CLONIDINE HCL 0.1 MG TABLET PO PRN (03:45)
[2020-03-12] MEDS ORDERED: CLONIDINE HCL 0.1 MG TABLET ONE (03:48)
[2020-03-12 05:10] LABS: HEMATOCRIT 34.4 % (36-48); MEAN CORPUSCULAR HEMOGLOBIN 31.7 pg (27.0-33.0); MEAN CORPUSCULAR VOLUME 93.2 fL (79-99); NUCLEATED RED BLOOD CELLS 0.2 % (0.0-0.19); PLATELET COUNT (AUTO) 265 K/uL (130-400); RED BLOOD CELL COUNT(AUTO) 3.69 MIL/uL (4.00-5.50); RED CELL DISTRIBUTION WIDTH 12.2 % (11.0-15.5); WHITE BLOOD COUNT (AUTO) 17.3 K/uL (4.8-10.8)
[2020-03-12 05:23] LABS: BAND NEUTROPHILS % (MANUAL) 2 % (0-2); LYMPHOCYTES % (MANUAL) 14 % (22-44); MAN.DIFF COMMENT-IMPRESSION MANUAL DIFFERENTIAL; MONOCYTES % (MANUAL) 1 % (2-9); PLATELET MORPHOLOGY COMMENT ADEQUATE; SEGMENTED NEUTROPHILS % 83 % (40-70)
[2020-03-12 05:37] LABS: ALBUMIN 2.4 g/dL (3.5-5.0); BILIRUBIN,TOTAL 0.3 mg/dL (0.2-1.0); CREATININE 1.5 mg/dL (0.5-1.5); CRP QUANTITATIVE 10.2 mg/L (0.00-9.0); POTASSIUM 3.9 mmol/L (3.5-5.1); TOTAL PROTEIN, SERUM 6.4 g/dL (6.0-8.3)
[2020-03-12] MEDS ORDERED: SITA50TA PO (05:52)
[2020-03-12] MEDS: INSULIN HUMULIN R 100 UNIT/ML 3ML SQ SCH ×7 (06:01→21:03)
[2020-03-12 08:14] VITALS: BP 145/83
[2020-03-12] MEDS: DEXAMETHASONE SOD PHOSPHATE 4 MG/ML 1ML VIAL IVP SCH ×2 (08:48→20:56)
[2020-03-12] MEDS: ASCORBIC ACID 500 MG TAB PO SCH (08:50)
[2020-03-12] MEDS: FAMOTIDINE 20MG TAB 20 MG TAB PO SCH (08:50)
[2020-03-12] MEDS: Vitamin B Complex/Vit C/Folic Acid PO SCH (08:50)
[2020-03-12] MEDS: ZINC SULFATE 220 CAPSULE PO SCH (08:50)
[2020-03-12] MEDS: GABAPENTIN 300 MG CAPSULE PO SCH ×3 (08:52→20:55)
[2020-03-12] MEDS: HEPARIN SODIUM 5000UNIT/ML 1ML VIAL SQ SCH ×2 (08:53→21:05)
[2020-03-12 12:56] VITALS: BP 155/63
[2020-03-12 16:30] VITALS: BP 147/59
[2020-03-12 19:30] VITALS: BP 143/76
[2020-03-12] MEDS: CEFTRIAXONE SODIUM 1 GM IV SCH (20:53)
[2020-03-12] MEDS: AZITHROMYCIN 500MG+NS 250ML 250 ML IV SCH (20:53)
[2020-03-12] MEDS: INSULIN GLARGINE 100 UNITS/ML 10 ML VIAL SQ SCH (21:04)
[2020-03-12 23:13] VITALS: BP 122/54
[2020-03-13 03:55] VITALS: BP 153/76
[2020-03-13] MEDS: INSULIN HUMULIN R 100 UNIT/ML 3ML SQ SCH ×7 (05:36→20:39)
[2020-03-13 05:58] LABS: HEMATOCRIT 35.4 % (36-48); MEAN CORPUSCULAR HEMOGLOBIN 32.2 pg (27.0-33.0); MEAN CORPUSCULAR HGB CONC 34.7 g/dL (32.0-36.0); MEAN CORPUSCULAR VOLUME 92.7 fL (79-99); PLATELET COUNT (AUTO) 264 K/uL (130-400); RED BLOOD CELL COUNT(AUTO) 3.82 MIL/uL (4.00-5.50); RED CELL DISTRIBUTION WIDTH 12.2 % (11.0-15.5); WHITE BLOOD COUNT (AUTO) 17.1 K/uL (4.8-10.8)
[2020-03-13 06:10] LABS: BAND NEUTROPHILS % (MANUAL) 5 % (0-2); LYMPHOCYTES % (MANUAL) 6 % (22-44); MAN.DIFF COMMENT-IMPRESSION MANUAL DIFFERENTIAL; METAMYELOCYTES % 3 % (0-0); MONOCYTES % (MANUAL) 4 % (2-9); PLATELET MORPHOLOGY COMMENT ADEQUATE; SEGMENTED NEUTROPHILS % 82 % (40-70)
[2020-03-13 06:18] LABS: ALBUMIN 2.5 g/dL (3.5-5.0); BILIRUBIN,TOTAL 0.2 mg/dL (0.2-1.0); CREATININE 1.6 mg/dL (0.5-1.5); CRP QUANTITATIVE 7.9 mg/L (0.00-9.0); POTASSIUM 3.9 mmol/L (3.5-5.1); TOTAL PROTEIN, SERUM 6.4 g/dL (6.0-8.3)
[2020-03-13 06:30] LABS: B-TYPE NATRIURETIC PEPTIDE 114 pg/mL (0-100)
[2020-03-13 08:00] VITALS: BP 164/77
[2020-03-13] MEDS: Vitamin B Complex/Vit C/Folic Acid PO SCH (08:40)
[2020-03-13] MEDS: FAMOTIDINE 20MG TAB 20 MG TAB PO SCH (08:40)
[2020-03-13] MEDS: LINAGLIPTIN 5 MG TABLET PO SCH (08:40)
[2020-03-13] MEDS: ZINC SULFATE 220 CAPSULE PO SCH (08:41)
[2020-03-13] MEDS: LISINOPRIL 40 MG TABLET PO SCH (08:41)
[2020-03-13] MEDS: CLOPIDOGREL BISULFATE 75 MG TAB PO SCH (08:41)
[2020-03-13] MEDS: ASCORBIC ACID 500 MG TAB PO SCH (08:41)
[2020-03-13] MEDS: GABAPENTIN 300 MG CAPSULE PO SCH ×3 (08:41→20:34)
[2020-03-13] MEDS: DEXAMETHASONE SOD PHOSPHATE 4 MG/ML 1ML VIAL IVP SCH ×2 (08:42→20:35)
[2020-03-13] MEDS: HEPARIN SODIUM 5000UNIT/ML 1ML VIAL SQ SCH ×2 (08:57→20:40)
[2020-03-13 11:39] VITALS: BP 107/61
[2020-03-13 15:39] VITALS: BP 140/90
[2020-03-13 19:00] VITALS: BP 137/66
[2020-03-13] MEDS: INSULIN GLARGINE 100 UNITS/ML 10 ML VIAL SQ SCH (20:40)
[2020-03-13 23:00] VITALS: BP 144/73
[2020-03-14 03:00] VITALS: BP 148/70
[2020-03-14 04:49] LABS: BASOPHILS % (AUTO) 0.4 % (0.0-5.0); HEMATOCRIT 33.7 % (36-48); LYMPHOCYTES % (AUTO) 4.5 % (21.0-51.0); MEAN CORPUSCULAR HEMOGLOBIN 31.9 pg (27.0-33.0); MEAN CORPUSCULAR HGB CONC 34.1 g/dL (32.0-36.0); MEAN CORPUSCULAR VOLUME 93.6 fL (79-99); MONOCYTES % (AUTO) 3.5 % (3.0-13.0); NEUTROPHILS % (AUTO) 84.9 % (40.0-77.0); NUCLEATED RED BLOOD CELLS 0.1 % (0.0-0.19); PLATELET COUNT (AUTO) 230 K/uL (130-400); RED CELL DISTRIBUTION WIDTH 12.6 % (11.0-15.5); WHITE BLOOD COUNT (AUTO) 19.6 K/uL (4.8-10.8)
[2020-03-14 05:13] LABS: CRP QUANTITATIVE 13.3 mg/L (0.00-9.0)
[2020-03-14] MEDS: INSULIN HUMULIN R 100 UNIT/ML 3ML SQ SCH ×7 (07:28→21:15)
[2020-03-14 07:30] LABS: ALBUMIN 2.6 g/dL (3.5-5.0); BILIRUBIN,TOTAL 0.3 mg/dL (0.2-1.0); CREATININE 1.6 mg/dL (0.5-1.5); POTASSIUM 4.6 mmol/L (3.5-5.1); TOTAL PROTEIN, SERUM 5.7 g/dL (6.0-8.3)
[2020-03-14 08:00] VITALS: BP 133/87
[2020-03-14] MEDS: GABAPENTIN 300 MG CAPSULE PO SCH ×3 (08:34→20:23)
[2020-03-14] MEDS: FAMOTIDINE 20MG TAB 20 MG TAB PO SCH (08:34)
[2020-03-14] MEDS: Vitamin B Complex/Vit C/Folic Acid PO SCH (08:34)
[2020-03-14] MEDS: LISINOPRIL 40 MG TABLET PO SCH (08:34)
[2020-03-14] MEDS: ZINC SULFATE 220 CAPSULE PO SCH (08:34)
[2020-03-14] MEDS: LINAGLIPTIN 5 MG TABLET PO SCH (08:34)
[2020-03-14] MEDS: ASCORBIC ACID 500 MG TAB PO SCH (08:34)
[2020-03-14] MEDS: DEXAMETHASONE SOD PHOSPHATE 4 MG/ML 1ML VIAL IVP SCH ×2 (08:35→20:23)
[2020-03-14] MEDS: CLOPIDOGREL BISULFATE 75 MG TAB PO SCH (08:35)
[2020-03-14] MEDS: HEPARIN SODIUM 5000UNIT/ML 1ML VIAL SQ SCH ×2 (08:58→21:17)
[2020-03-14 12:00] VITALS: BP 171/74
[2020-03-14] MEDS ORDERED: LORAZEPAM 1 MG TABLET PO PRN (12:30)
[2020-03-14] MEDS: ACETAMINOPHEN 325 MG TAB PO PRN (13:34)
[2020-03-14] MEDS: INSULIN GLARGINE 100 UNITS/ML 10 ML VIAL SQ SCH (21:16)
[2020-03-14 23:35] VITALS: BP 171/73
[2020-03-15 03:19] VITALS: BP 163/64
[2020-03-15 04:42] LABS: BASOPHILS % (AUTO) 0.4 % (0.0-5.0); HEMATOCRIT 34.7 % (36-48); LYMPHOCYTES % (AUTO) 4.4 % (21.0-51.0); MEAN CORPUSCULAR HEMOGLOBIN 32.1 pg (27.0-33.0); MEAN CORPUSCULAR VOLUME 94.3 fL (79-99); MONOCYTES % (AUTO) 2.9 % (3.0-13.0); NEUTROPHILS % (AUTO) 86.4 % (40.0-77.0); PLATELET COUNT (AUTO) 241 K/uL (130-400); RED BLOOD CELL COUNT(AUTO) 3.68 MIL/uL (4.00-5.50); RED CELL DISTRIBUTION WIDTH 12.6 % (11.0-15.5); WHITE BLOOD COUNT (AUTO) 22.1 K/uL (4.8-10.8)
[2020-03-15 05:01] LABS: ALBUMIN 2.4 g/dL (3.5-5.0); BILIRUBIN,TOTAL 0.3 mg/dL (0.2-1.0); CREATININE 1.6 mg/dL (0.5-1.5); CRP QUANTITATIVE 10.7 mg/L (0.00-9.0); POTASSIUM 4.5 mmol/L (3.5-5.1); TOTAL PROTEIN, SERUM 6.4 g/dL (6.0-8.3)
[2020-03-15] MEDS: INSULIN HUMULIN R 100 UNIT/ML 3ML SQ SCH ×7 (06:35→20:29)
[2020-03-15 08:00] VITALS: BP 166/74
[2020-03-15] MEDS: FAMOTIDINE 20MG TAB 20 MG TAB PO SCH (10:05)
[2020-03-15] MEDS: ASCORBIC ACID 500 MG TAB PO SCH (10:05)
[2020-03-15] MEDS: ZINC SULFATE 220 CAPSULE PO SCH (10:06)
[2020-03-15] MEDS: GABAPENTIN 300 MG CAPSULE PO SCH ×3 (10:06→20:26)
[2020-03-15] MEDS: LISINOPRIL 40 MG TABLET PO SCH (10:06)
[2020-03-15] MEDS: LINAGLIPTIN 5 MG TABLET PO SCH (10:06)
[2020-03-15] MEDS: Vitamin B Complex/Vit C/Folic Acid PO SCH (10:06)
[2020-03-15] MEDS: CLOPIDOGREL BISULFATE 75 MG TAB PO SCH (10:06)
[2020-03-15] MEDS: DEXAMETHASONE SOD PHOSPHATE 4 MG/ML 1ML VIAL IVP SCH ×2 (10:07→20:26)
[2020-03-15] MEDS: HEPARIN SODIUM 5000UNIT/ML 1ML VIAL SQ SCH ×2 (10:08→20:27)
[2020-03-15 12:26] VITALS: BP 160/78
[2020-03-15] MEDS: ACETAMINOPHEN 325 MG TAB PO PRN (15:47)
[2020-03-15 16:00] VITALS: BP 145/59
[2020-03-15 19:53] VITALS: BP 172/78
[2020-03-15] MEDS: INSULIN GLARGINE 100 UNITS/ML 10 ML VIAL SQ SCH (20:30)
[2020-03-15 23:55] VITALS: BP 151/56
[2020-03-16 03:40] VITALS: BP 140/56
[2020-03-16 04:30] LABS: BASOPHILS % (AUTO) 0.2 % (0.0-5.0); HEMATOCRIT 34.1 % (36-48); LYMPHOCYTES % (AUTO) 4.2 % (21.0-51.0); MEAN CORPUSCULAR HEMOGLOBIN 31.6 pg (27.0-33.0); MEAN CORPUSCULAR VOLUME 92.9 fL (79-99); MONOCYTES % (AUTO) 3.3 % (3.0-13.0); NEUTROPHILS % (AUTO) 88.5 % (40.0-77.0); PLATELET COUNT (AUTO) 192 K/uL (130-400); RED BLOOD CELL COUNT(AUTO) 3.67 MIL/uL (4.00-5.50); RED CELL DISTRIBUTION WIDTH 12.5 % (11.0-15.5); WHITE BLOOD COUNT (AUTO) 20.6 K/uL (4.8-10.8)
[2020-03-16 04:53] LABS: ALBUMIN 2.4 g/dL (3.5-5.0); BILIRUBIN,TOTAL 0.3 mg/dL (0.2-1.0); CREATININE 1.6 mg/dL (0.5-1.5); CRP QUANTITATIVE 14.6 mg/L (0.00-9.0); POTASSIUM 4.5 mmol/L (3.5-5.1); TOTAL PROTEIN, SERUM 6.3 g/dL (6.0-8.3)
[2020-03-16] MEDS: INSULIN HUMULIN R 100 UNIT/ML 3ML SQ SCH ×7 (06:38→21:30)
[2020-03-16 07:58] VITALS: BP 115/68
[2020-03-16] MEDS: DEXAMETHASONE SOD PHOSPHATE 4 MG/ML 1ML VIAL IVP SCH (08:58)
[2020-03-16] MEDS: HEPARIN SODIUM 5000UNIT/ML 1ML VIAL SQ SCH ×2 (08:58→21:25)
[2020-03-16] MEDS: Vitamin B Complex/Vit C/Folic Acid PO SCH (08:58)
[2020-03-16] MEDS: CLOPIDOGREL BISULFATE 75 MG TAB PO SCH (08:59)
[2020-03-16] MEDS: ZINC SULFATE 220 CAPSULE PO SCH (08:59)
[2020-03-16] MEDS: GABAPENTIN 300 MG CAPSULE PO SCH ×3 (08:59→21:38)
[2020-03-16] MEDS: ASCORBIC ACID 500 MG TAB PO SCH (08:59)
[2020-03-16] MEDS: LISINOPRIL 40 MG TABLET PO SCH (09:00)
[2020-03-16] MEDS: FAMOTIDINE 20MG TAB 20 MG TAB PO SCH (09:00)
[2020-03-16] MEDS: LINAGLIPTIN 5 MG TABLET PO SCH (09:00)
[2020-03-16 12:12] VITALS: BP 140/79
[2020-03-16 16:34] VITALS: BP 116/81
[2020-03-16 20:50] VITALS: BP 137/71
[2020-03-16] MEDS: INSULIN GLARGINE 100 UNITS/ML 10 ML VIAL SQ SCH (21:28)
[2020-03-17] VITALS (7 sets, daily range): BP systolic 99–162; BP diastolic 54–85
[2020-03-17 04:50] LABS: BASOPHILS % (AUTO) 0.2 % (0.0-5.0); EOSINOPHILS % (AUTO) 0.1 % (0.0-8.0); HEMATOCRIT 31.3 % (36-48); LYMPHOCYTES % (AUTO) 7.8 % (21.0-51.0); MEAN CORPUSCULAR HEMOGLOBIN 31.8 pg (27.0-33.0); MEAN CORPUSCULAR HGB CONC 33.9 g/dL (32.0-36.0); MONOCYTES % (AUTO) 6.4 % (3.0-13.0); NEUTROPHILS % (AUTO) 83.2 % (40.0-77.0); PLATELET COUNT (AUTO) 162 K/uL (130-400); RED BLOOD CELL COUNT(AUTO) 3.33 MIL/uL (4.00-5.50); RED CELL DISTRIBUTION WIDTH 12.8 % (11.0-15.5)
[2020-03-17 05:09] LABS: ALBUMIN 2.1 g/dL (3.5-5.0); BILIRUBIN,TOTAL 0.3 mg/dL (0.2-1.0); CREATININE 1.5 mg/dL (0.5-1.5); CRP QUANTITATIVE 12.3 mg/L (0.00-9.0); POTASSIUM 4.5 mmol/L (3.5-5.1); TOTAL PROTEIN, SERUM 5.6 g/dL (6.0-8.3)
[2020-03-17] MEDS: INSULIN HUMULIN R 100 UNIT/ML 3ML SQ SCH ×7 (05:15→21:10)
[2020-03-17] MEDS: DEXAMETHASONE 4 MG TAB PO SCH (08:19)
[2020-03-17] MEDS: CLOPIDOGREL BISULFATE 75 MG TAB PO SCH (08:19)
[2020-03-17] MEDS: GABAPENTIN 300 MG CAPSULE PO SCH ×3 (08:19→21:05)
[2020-03-17] MEDS: FAMOTIDINE 20MG TAB 20 MG TAB PO SCH (08:19)
[2020-03-17] MEDS: LINAGLIPTIN 5 MG TABLET PO SCH (08:19)
[2020-03-17] MEDS: Vitamin B Complex/Vit C/Folic Acid PO SCH (08:19)
[2020-03-17] MEDS: ZINC SULFATE 220 CAPSULE PO SCH (08:19)
[2020-03-17] MEDS: ASCORBIC ACID 500 MG TAB PO SCH (08:19)
[2020-03-17] MEDS: HEPARIN SODIUM 5000UNIT/ML 1ML VIAL SQ SCH ×2 (08:20→21:07)
[2020-03-17] MEDS: LISINOPRIL 40 MG TABLET PO SCH (08:23)
[2020-03-17] MEDS: INSULIN GLARGINE 100 UNITS/ML 10 ML VIAL SQ SCH (21:09)
[2020-03-18 03:55] VITALS: BP 148/78
[2020-03-18] MEDS: INSULIN HUMULIN R 100 UNIT/ML 3ML SQ SCH ×4 (06:27→11:29)
[2020-03-18 07:00] VITALS: BP 113/53
[2020-03-18] MEDS: GABAPENTIN 300 MG CAPSULE PO SCH ×2 (08:39→14:22)
[2020-03-18] MEDS: Vitamin B Complex/Vit C/Folic Acid PO SCH (08:39)
[2020-03-18] MEDS: ZINC SULFATE 220 CAPSULE PO SCH (08:39)
[2020-03-18] MEDS: HEPARIN SODIUM 5000UNIT/ML 1ML VIAL SQ SCH (08:39)
[2020-03-18] MEDS: CLOPIDOGREL BISULFATE 75 MG TAB PO SCH (08:39)
[2020-03-18] MEDS: FAMOTIDINE 20MG TAB 20 MG TAB PO SCH (08:40)
[2020-03-18] MEDS: DEXAMETHASONE 4 MG TAB PO SCH (08:40)
[2020-03-18] MEDS: LISINOPRIL 40 MG TABLET PO SCH (08:40)
[2020-03-18] MEDS: ASCORBIC ACID 500 MG TAB PO SCH (08:40)
[2020-03-18 11:00] VITALS: BP 111/74
[2020-03-18 15:00] VITALS: BP 125/70
== END 2020-03-18 16:30 | DRG 177 ==
LOC: EDH 16:41 → EDHIP 20:52 → 2AH 22:59
PROVIDERS: ADMIT Internal Medicine; ATTEND Internal Medicine
PROC: XW13325 Transfusion of Convalescent Plasma (Nonautologous) into Peripheral Vein, Percutaneous Approach, New Technology Group 5 (ICD-10-PCS; principal; 2020-03-05)
PROC: 5A09357 Assistance with Respiratory Ventilation, Less than 24 Consecutive Hours, Continuous Positive Airway Pressure (ICD-10-PCS; 2020-03-07)
PROC: 5A09357 Assistance with Respiratory Ventilation, Less than 24 Consecutive Hours, Continuous Positive Airway Pressure (ICD-10-PCS; 2020-03-08)
PROC: 5A09357 Assistance with Respiratory Ventilation, Less than 24 Consecutive Hours, Continuous Positive Airway Pressure (ICD-10-PCS; 2020-03-11)
PROC: 5A0935A Assistance with Respiratory Ventilation, Less than 24 Consecutive Hours, High Flow/Velocity Cannula (ICD-10-PCS; 2020-03-11)
PROC: 5A0935A Assistance with Respiratory Ventilation, Less than 24 Consecutive Hours, High Flow/Velocity Cannula (ICD-10-PCS; 2020-03-12)
DX: U07.1 COVID-19 (principal); J12.89 Other viral pneumonia; J96.01 Acute respiratory failure with hypoxia; J44.0 Chronic obstructive pulmonary disease with (acute) lower respiratory infection; N17.9 Acute kidney failure, unspecified; R78.81 Bacteremia; E87.1 Hypo-osmolality and hyponatremia; E87.2 Acidosis; E66.9 Obesity, unspecified; R13.10 Dysphagia, unspecified; N28.1 Cyst of kidney, acquired; K76.0 Fatty (change of) liver, not elsewhere classified; K21.9 Gastro-esophageal reflux disease without esophagitis; N18.31 Chronic kidney disease, stage 3a; G47.33 Obstructive sleep apnea (adult) (pediatric); G25.81 Restless legs syndrome; E87.8 Other disorders of electrolyte and fluid balance, not elsewhere classified; E87.6 Hypokalemia; E86.9 Volume depletion, unspecified; D64.9 Anemia, unspecified; R53.81 Other malaise; M21.371 Foot drop, right foot; M21.372 Foot drop, left foot; R73.03 Prediabetes; I95.9 Hypotension, unspecified; E78.5 Hyperlipidemia, unspecified; Z82.49 Family history of ischemic heart disease and other diseases of the circulatory system; Z95.0 Presence of cardiac pacemaker; Z90.710 Acquired absence of both cervix and uterus; Z90.49 Acquired absence of other specified parts of digestive tract; Z86.718 Personal history of other venous thrombosis and embolism; Z86.711 Personal history of pulmonary embolism; Z68.28 Body mass index [BMI] 28.0-28.9, adult
CPT/HCPCS: 36415; 36430; 36600; 71045; 76705; 76770; 80048; 80053; 81001; 82550; 82570; 82728; 82803; 82948; 83036; 83605; 83615; 83735; 83874; 83880; 84100; 84145; 84300; 84484; 84550; 85025; 85378; 85610; 85651; 85730; 86140; 86900; 86901; 86927; 87040; 87088; 87426; 92610; 93005; 93306; 93356; 94660; 94760; 97039; G0378; J0456; J0696; J1100; J1644; J1815; J2920; J2930; J3480; J3490; J7030; J7050; J8540; U0003

== ENCOUNTER → 2022-10-25 | Outpatient (CLI) | payer OTHER, MEDICARE ==
[~2022-10-25] MED LIST changes: -BRIM5DRO4 OP; +BRIM5DRO5 OP; -LISI40TA4 PO; +LISI40TA9 PO; +MONT-39 PO; -MONT10TA96 PO; +PARO-160 PO; -PARO40TA PO; +ROPI0.5T37 PO; -ROPI0.5T7 PO; +SITA50TA PO
== END | disposition home or self-care (01) ==
LOC: SHCH 09:06
PROVIDERS: ATTEND Internal Medicine Cardiovascular Disease
DX: I35.0 Nonrheumatic aortic (valve) stenosis (principal)
CPT/HCPCS: 93306

== ENCOUNTER → 2023-02-01 | Outpatient (CLI) | payer OTHER, MEDICARE ==
[~2023-02-01] MED LIST changes: +CYCL-309 PO; +IBUP-1493 PO
== END | disposition home or self-care (01) ==
LOC: SHCH 08:32
PROVIDERS: ATTEND Internal Medicine Cardiovascular Disease
DX: I87.1 Compression of vein (principal); I87.2 Venous insufficiency (chronic) (peripheral); I73.9 Peripheral vascular disease, unspecified; I25.10 Atherosclerotic heart disease of native coronary artery without angina pectoris; I11.0 Hypertensive heart disease with heart failure; I50.32 Chronic diastolic (congestive) heart failure; I35.0 Nonrheumatic aortic (valve) stenosis; E11.9 Type 2 diabetes mellitus without complications; E78.5 Hyperlipidemia, unspecified; Z79.899 Other long term (current) drug therapy
CPT/HCPCS: 93925; 93970

== ENCOUNTER → 2023-02-06 | Outpatient (CLI) | payer OTHER, MEDICARE ==
[~2023-02-06] MED LIST changes: +REGADENOSON 0.4 MG/5 ML PF SYG IVP ONE
== END | disposition home or self-care (01) ==
LOC: SHCH 07:59
PROVIDERS: ATTEND Internal Medicine Cardiovascular Disease
DX: R07.9 Chest pain, unspecified (principal)
CPT/HCPCS: 78452; 93017; J2785; A9500 ×2; 96374

== ENCOUNTER → 2023-11-07 | Outpatient (CLI) | payer OTHER, MEDICARE ==
[~2023-11-07] MED LIST changes: -REGADENOSON 0.4 MG/5 ML PF SYG IVP ONE
== END | disposition home or self-care (01) ==
LOC: SHCH 08:20
PROVIDERS: ATTEND Internal Medicine Cardiovascular Disease
DX: I35.0 Nonrheumatic aortic (valve) stenosis (principal); R01.1 Cardiac murmur, unspecified
CPT/HCPCS: 93306

== ENCOUNTER → 2024-05-09 | Outpatient (CLI) | payer OTHER, MEDICARE ==
[~2024-05-09] MED LIST changes: +ALBU18HF7 IH; +ALLO100T PO; -ALLO300T2 PO; -BRIM5DRO5 OP; -CYCL-309 PO; +DULO60CA64 PO; -FAMO40TA7 PO; +FENO54TA6 PO; +FURO20TA4 PO; -GABA300C PO; +HYDR25TA67 PO; -IBUP-1493 PO; +LEVO5TAB13 PO; -LISI40TA9 PO; -LORA10TA7 PO; -LOVA40TA2 PO; -MONT-39 PO; -PARO-160 PO; -ROPI0.5T37 PO; +SUCR1TAB2 PO; +TRAZ-185 PO; -TRAZ-187 PO
[2024-05-09 09:02] LABS: POTASSIUM 3.7 mmol/L (3.5-5.1)
== END | disposition home or self-care (01) ==
LOC: LAB 08:37
PROVIDERS: ATTEND Internal Medicine Cardiovascular Disease
DX: I35.0 Nonrheumatic aortic (valve) stenosis (principal)
CPT/HCPCS: 36415; 80048

== ENCOUNTER 2024-05-26 10:42 | Day surgery (SDC) | payer OTHER, MEDICARE ==
[2024-05-23 14:55] VITALS: BP 156/66; PULSE 77; RESP 18; TEMP 97.4
[2024-05-23 15:03] LABS: BASOPHILS # (AUTO) 0.06 K/uL (0.00-0.20); BASOPHILS % (AUTO) 0.7 % (0.0-5.0); EOSINOPHILS # (AUTO) 0.15 K/uL (0.00-0.70); EOSINOPHILS % (AUTO) 1.7 % (0.0-8.0); HEMATOCRIT 35.9 % (36-48); IMMATURE GRANULOCYTE ABSOLUTE 0.04 K/uL (0-1); LYMPHOCYTES # (AUTO) 2.5 K/uL (1.0-4.8); LYMPHOCYTES % (AUTO) 27.7 % (21.0-51.0); MEAN CORPUSCULAR HEMOGLOBIN 31.5 pg (27.0-33.0); MEAN CORPUSCULAR HGB CONC 32.6 g/dL (32.0-36.0); MEAN CORPUSCULAR VOLUME 96.8 fL (79-99); MONOCYTES # (AUTO) 0.7 K/uL (0.1-1.0); MONOCYTES % (AUTO) 7.3 % (3.0-13.0); NEUTROPHILS # (AUTO) 5.6 K/uL (1.8-7.7); NEUTROPHILS % (AUTO) 62.2 % (40.0-77.0); PLATELET COUNT (AUTO) 256 K/uL (130-400); RED BLOOD CELL COUNT(AUTO) 3.71 MIL/uL (4.00-5.50); RED CELL DISTRIBUTION WIDTH 12.1 % (11.0-15.5)
[2024-05-23 15:12] LABS: CREATININE 1.1 mg/dL (0.5-1.0)
[2024-05-23 15:15] LABS: INR 0.95 (0.85-1.15); PROTHROMBIN TIME 10.7 SEC (9.6-11.6)
[2024-05-23 15:17] LABS: PARTIAL THROMBOPLASTIN TIME 26.1 SEC (26.3-35.5)
--- NOTE | 2024-05-23 17:24 | EKG ---
[facility] Test Date: 2024-05-23 Test Time: 15:45:50 Pat Name: MAYA BARNES Department: [facility] Room: Gender: F [employer] Clerk: [id number] : 1945 Requested By: LUDIVINA GOMEZ Order Number: [id number] Reading MD: Gary Waters Measurements Intervals [place] Rate: 66 P: 47 MI: 224 QRS: -41 QRSD: 104 T: -34 QT: 468 QTc: 492 Interpretive Statements Sinus rhythm Prolonged MI interval Left axis deviation Borderline T abnormalities, diffuse leads Compared to ECG 01/24/2024 09:18:03 Left-axis deviation now present T-wave abnormality now present Atrial-paced complex(es) or rhythm no longer present Myocardial infarct finding no longer present Electronically Signed On 05-23-2024 17:41:03 LINOLEUM PRINTER by Gary Waters Please click the below link to view image of tracing.
[~2024-05-26] VITALS: Ht 160 cm; Wt 64.9 kg
[2024-05-26] VITALS (7 sets, daily range): BP systolic 129–143; BP diastolic 51–88; PULSE 68–74; RESP 15–18; TEMP 97.7
[~2024-05-26 10:42] MED LIST changes: -AEC81 PO; -AMLO2.5T4 PO; -HYDR25TA67 PO; -PANT40TA54 PO
[2024-05-26] MEDS: 0.9%NACL 1000ML 1,000 ML IV SCH (12:12)
[2024-05-26] MEDS ORDERED: LIDOCAINE HCL 1% MDV 50ML VIAL ONE (12:16)
[2024-05-26] MEDS ORDERED: ceFAZolin SODIUM 1 GM VIAL ONE (12:16)
[2024-05-26] MEDS ORDERED: BUPIvacaine/PF 0.25% 30ML VIAL IJ ONE (12:17)
[2024-05-26] MEDS ORDERED: MIDAZOLAM HCL 1 MG/ML 2ML VIAL ONE (12:44)
[2024-05-26] MEDS ORDERED: FENTanyl CITRate PF 50 MCG/1 ML 2ML VIAL ONE (12:44)
[2024-05-26] MEDS ORDERED: MINO100C6 PO (13:40)
[2024-05-26] MEDS ORDERED: acetaMINOPHEN WITH coDEINE 1 TAB TAB PO PRN (14:00)
[2024-05-26] MEDS ORDERED: acetaMINOPHEN 500 MG TABLET PO PRN (14:00)
== END 2024-05-26 15:49 | disposition home or self-care (01) ==
LOC: DAH 10:42
PROVIDERS: ATTEND Student in an Organized Health Care Education/Training Program
DX: Z45.010 Encounter for checking and testing of cardiac pacemaker pulse generator [battery] (principal); I49.5 Sick sinus syndrome; I35.0 Nonrheumatic aortic (valve) stenosis; I87.2 Venous insufficiency (chronic) (peripheral); R06.02 Shortness of breath; E78.5 Hyperlipidemia, unspecified; I11.0 Hypertensive heart disease with heart failure; I50.30 Unspecified diastolic (congestive) heart failure; K21.9 Gastro-esophageal reflux disease without esophagitis; F41.9 Anxiety disorder, unspecified; E66.9 Obesity, unspecified; E11.9 Type 2 diabetes mellitus without complications; G47.33 Obstructive sleep apnea (adult) (pediatric); Z90.710 Acquired absence of both cervix and uterus; Z90.49 Acquired absence of other specified parts of digestive tract; Z87.898 Personal history of other specified conditions; Z88.8 Allergy status to other drugs, medicaments and biological substances; Z79.899 Other long term (current) drug therapy; Z68.25 Body mass index [BMI] 25.0-25.9, adult; Z86.0100 Personal history of colon polyps, unspecified; Z79.84 Long term (current) use of oral hypoglycemic drugs
CPT/HCPCS: 80048; 85025; 85610; 85730; 36415; 93005; 33228; 82948; C1785; J3010; J0690; J0665; J2250; J3490; A4215; A4222; A4221; A4663; A4216; A4606; A4223 ×3; 99156; 99157

== ENCOUNTER → 2024-06-06 | Outpatient (CLI) | payer OTHER, MEDICARE ==
[~2024-06-06] MED LIST changes: +IOHEXOL 350 MG/ML 100ML INFUS..BTL IV ONE; +MINO100C6 PO
--- NOTE | 2024-06-06 12:23 | HMCIMG ---
CT ANGIO TAVR PROTOCOL REASON: NONRHEUMATIC AORTIC STENOSIS COMPARISON: None TECHNIQUE: Axial images are obtained from thoracic inlet through the symphysis pubis following IV contrast enhancement. 1 mm sections are obtained with cardiac gating using TAVR protocol. Contrast volume 100 cc Omnipaque 350. FINDINGS: There are mild emphysematous changes in both lungs. There are no focal masses. There are no focal infiltrates. There is no pleural effusion. Ascending aorta appears normal at 3.3 cm, there is no dissection. There are mild plaques abdominal aorta without aneurysm or stenosis. Celiac axis appears narrowed by calcified plaque. Superior mesenteric artery origin is widely patent. Renal artery origins appear patent. Common and external iliac arteries appear unremarkable. There is no hilar or mediastinal lymphadenopathy. Chest wall structures appear unremarkable. There are no focal liver lesions. Spleen and pancreas appear normal. Right kidney appears unremarkable, left kidney is partially atrophic. Gallbladder is absent. Bowel loops are unremarkable. There is no free air or fluid. There are no focal fluid collection. There is no retroperitoneal lymphadenopathy. Pelvic soft tissues appear normal. Anterior abdominal wall is intact. There are surgical changes in the lumbar spine, there are no acute appearing focal osseous lesions. IMPRESSION: 1. Mild emphysematous changes in both lungs. 2. Probable atherosclerotic narrowing of the origin of the celiac axis. 3. Otherwise unremarkable CT angiogram of the chest, abdomen and pelvis.
--- NOTE | 2024-06-08 14:18 | CARDIOLOGY ---
RAD REPORT: CORNARY CT ANGIO RADIOLOGY REPORT: CORONARY CT ANGIOGRAPHY DATE: Jun 08, 2024 QUALITY: Excellent CLINICAL HISTORY AND INDICATION: [ TAVR ] TECHNIQUE: After obtaining a preliminary chair inspector and leveler image, contrast imaging performed on an [employer]illon [id number] scanner. A dedicated, limited window, coronary imaging protocol was used, with single breath-hold, retrospective ECG gating, and automated arrhythmia rejection. 100 cc of low osmolar contrast agent: Omnipaque 350 was delivered via a 18-gauge IV catheter in the right antecubital fossa, using a power injector and followed by 60 cc of normal saline bolus as a chaser. Collimated images were reformatted at 0.5 mm intervals, and sent to an offline independent workstation for interpretation, using 3D anatomic reconstructions: Curved multiplanar reconstructions, maximum intensity projections, and multiplanar imaging. No metoprolol was administered prior to scanning due to low baseline heart rate. No SL nitroglycerin was given. CORONARY ARTERY DESCRIPTIONS: The coronary arteries arise in normal position. Left main coronary artery: Normal caliber vessel that bifurcates into the LAD and LCx. No stenosis. Left anterior descending coronary artery: Normal caliber vessel and gives rise to diagonal and septal branches. No stenosis. Left circumflex coronary artery: Normal caliber, nondominant and gives rise to a large OM branch. No stenosis. Right coronary artery: Large, dominant vessel giving rise to the PL and PDA branches. No stenosis. CAD-RADs: 0, absence of CAD. Thoracic Aorta: Normal diameter. Naomy Ny MD Cardiovascular Disease [facility] NAOMY [place] MD Jun 08, 2024 14:18
== END | disposition home or self-care (01) ==
LOC: RAH 09:10
PROVIDERS: ATTEND Internal Medicine Cardiovascular Disease
DX: I35.0 Nonrheumatic aortic (valve) stenosis (principal); J43.9 Emphysema, unspecified; I70.0 Atherosclerosis of aorta
CPT/HCPCS: 74174; 75574; Q9967

== ENCOUNTER 2024-07-25 17:55 | Emergency (ER) | payer OTHER, MEDICARE ==
[~2024-07-25] VITALS: Ht 157.5 cm; Wt 68.0 kg
[~2024-07-25 17:55] MED LIST changes: -IOHEXOL 350 MG/ML 100ML INFUS..BTL IV ONE
--- NOTE | 2024-07-25 18:31 | HMCIMG ---
CT HEAD WITHOUT CONTRAST INDICATION: Head injury TECHNIQUE: Noncontrast axial helical CT images from the vertex through the skull base using 5 mm slice thickness without contrast material. Coronal and sagittal reconstructions were also included. Dose reduction techniques was used using integrated, automated and adaptive dose reduction exposure control. CT was performed with one or more of the following dose reduction techniques: Automated exposure control, adjustment of the mA and/or kV according to patient size, or use of iterative reconstruction technique. COMPARISON: None FINDINGS: Mild high right parietal scalp soft tissue swelling. Scattered and coalescent subcortical and periventricular white matter low attenuating areas likely represent residual of chronic small vessel arteriopathy and/or remote vascular insult. Generalized mild cerebral cortical atrophy is present.. No evidence for abnormal extra-axial fluid collections or masses. The ventricles and sulci are normal in size and configuration. No evidence for intracranial parenchymal, epidural, or subdural hemorrhage, mass effect or midline shift. The mejía-white matter differentiation is well preserved. No secondary evidence to suggest acute ischemia. Mild calcific plaque is present along the dunham of the cavernous segments of both internal carotid arteries. The brainstem and cerebellum appear normal. The visualized orbits appear unremarkable. The visible paranasal sinuses and mastoid air cells are clear. The calvarium appears normal. IMPRESSION: Chronic white matter ischemic changes, mild brain atrophy, and arteriosclerotic disease as described, without acute component.
--- NOTE | 2024-07-25 18:32 | HMCIMG ---
CT CERVICAL SPINE WITHOUT CONTRAST INDICATION: Neck pain after fall TECHNIQUE: Contiguous axial computed tomography imaging using 2 mm slice thickness through the cervical spine. Reconstructions in the sagittal and coronal planes. CT was performed with one or more of the following dose reduction techniques: Automated exposure control, adjustment of the mA and/or kV according to patient size, or use of iterative reconstruction technique. COMPARISON: None. FINDINGS: Straightening of the normal lordosis may be related to overlying muscle spasm, underlying degenerative joint disease and/or patient positioning. Vertebral bodies are normal stature without evidence for compression deformity or fracture. No evidence for subluxation. Multilevel mild cervical spondylosis. The craniocervical junction appears normal. The atlantoaxial articulation is within normal limits. The dens is intact. The pre- and paravertebral soft tissues appear unremarkable. IMPRESSION: No evidence for fracture or subluxation.
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
--- NOTE | 2024-07-25 19:02 | HMCIMG ---
PORTABLE CHEST RADIOGRAPH INDICATION: chest trauma COMPARISON: None FINDINGS: Left sided dual chamber pacer and continuous leads remain in customary position. Heart size is normal. Mild calcific plaque is present along the aortic arch dunham. The pulmonary vascularity and murtaza appear normal. No abnormal pulmonary parenchymal opacity or consolidation identified. No significant pleural effusion noted. No pneumothorax detected. IMPRESSION: No radiographic evidence for any acute cardiopulmonary process.
--- NOTE | 2024-07-25 20:25 | HMCIMG ---
ELBOW COMP 3+VWS RT HISTORY: Pain and injury COMPARISON: None TECHNIQUE: 3 images of right elbow were obtained. FINDINGS: Fracture displacement is seen involving the proximal ulna extending into the olecranon process. No dislocation is seen. Anterior and posterior fat pad displacement are noted. Soft tissue swelling is seen. Degenerative changes are seen. IMPRESSION: 1. Findings as described above.
--- NOTE | 2024-07-25 21:09 | NUR ---
POSTERIOR ELBOW SPLINT PLACED BY STUDENT ACTIVITIES DIRECTOR. SLING TO RT ARM.
[2024-07-25 21:10] VITALS: BP 134/50; PULSE 71; RESP 16; TEMP 98.7; O2SAT 98
== END 2024-07-25 21:24 | disposition home or self-care (01) ==
LOC: EDH 17:55
DX: S52.031A Displaced fracture of olecranon process with intraarticular extension of right ulna, initial encounter for closed fracture (principal); S50.01XA Contusion of right elbow, initial encounter; R51.9 Headache, unspecified; I11.9 Hypertensive heart disease without heart failure; I25.10 Atherosclerotic heart disease of native coronary artery without angina pectoris; E11.9 Type 2 diabetes mellitus without complications; Z79.01 Long term (current) use of anticoagulants; Z79.02 Long term (current) use of antithrombotics/antiplatelets; Z79.84 Long term (current) use of oral hypoglycemic drugs; Z79.899 Other long term (current) drug therapy; W18.39XA Other fall on same level, initial encounter; Y93.89 Activity, other specified; Y92.89 Other specified places as the place of occurrence of the external cause; Y99.8 Other external cause status
CPT/HCPCS: 29105; 70450; 71045; 72125; 73080; 99283; 99284

== ENCOUNTER 2024-07-28 10:17 | Emergency (ER) | payer OTHER, MEDICARE ==
[~2024-07-28] VITALS: Ht 160 cm; Wt 63.5 kg
--- NOTE | 2024-07-28 10:33 | ERN ---
General Chief Complaint: Other Problems Stated Complaint: RIGHT ELBOW PAIN REFERAL Time Seen by MD: 10:18 Time Seen by Midlevel: 10:18 Source: patient History of Present Illness Initial Comments The patient is a 79-year-old female presenting to the emergency department asking for an orthopedic referral. The patient was seen in our emergency department earlier this week after she sustained a fall. She was diagnosed with an olecranon fracture of the right elbow. She was splinted and told to follow up outpatient with Dr. Delgadillo. 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 Additionally, she reports bleeding through her right splint and wanted further evaluation. Otherwise the patient has no complaints Allergies: Coded Allergies: No Known Drug Allergies (Verified Allergy, Unknown, 05/23/24) adhesive tape (Unverified Allergy, Unknown, RASH ITCH, 05/23/24) Home Meds Active Scripts Minocycline HCl (Minocycline HCl) 100 Mg Capsule, 1 CAP PO BID for 5 Days, #10 CAP 0 Refills Prov:LUDIVINA MANCILLA MD 05/26/24 Clopidogrel Bisulfate (Clopidogrel) 75 Mg Tablet, 75 MG PO DAILY, #90 TAB 1 Refill Prov:JULIANO SIERRA MD 09/03/19 Nitroglycerin (Nitrostat) 0.4 Mg Tab.subl, 0.4 MG SL AD PRN for CHEST PAIN for 90 Days, #90 TAB.SL Prov:JULIANO SIERRA MD 09/02/19 Reported Medications Allopurinol (Allopurinol) 100 Mg Tablet, 1 TAB PO DAILY for 30 Days, #30 TAB 0 Refills 01/24/24 Furosemide (Furosemide) 20 Mg Tablet, 1 TAB PO AM for 30 Days, #30 TAB 0 Refills 01/24/24 Sucralfate (Sucralfate) 1 Gram Tablet, 1 GM PO BID, TAB 01/24/24 Trazodone HCl (Trazodone HCl) 50 Mg Tablet, 1 TAB PO HS for 30 Days, #30 TAB 0 Refills 01/24/24 Fenofibrate (Fenofibrate) 54 Mg Tablet, 1 TAB PO HS for 30 Days, #30 TAB 0 Refills 01/24/24 Levocetirizine Dihydrochloride (Levocetirizine Dihydrochloride) 5 Mg Tablet, 1 TAB PO HS for 30 Days, #30 TAB 0 Refills 01/24/24 Duloxetine HCl (Duloxetine HCl) 60 Mg Capsule.dr, 1 CAP PO HS for 30 Days, #30 CAP 0 Refills 01/24/24 Albuterol Sulfate (Ventolin Hfa) 90 Mcg Hfa.aer.ad, 2 PUFF IH BID PRN for wheezing for 30 Days, #18 GM 0 Refills 01/24/24 Sitagliptin Phosphate (Januvia) 50 Mg Tablet, 50 MG PO DAILY, TAB 03/12/20 Latanoprost/Pf (Latanoprost 0.005% Eye Drop) 7.5 Ml Drops, 1 DROP OP BID, DROP 09/02/19 Sotalol HCl (Sotalol) 80 Mg Tablet, 80 MG PO BID, TAB 01/09/17 Past Medical History Past Medical History: CAD, Diabetes-Type II, Heart Disease, Hypertension Medical History Other: pacemaker Past Surgical History: Pacer/AICD Surgical History Other: History of back surgery x 2 Social History Social History: Negative ROS Dictation CONSTITUTIONAL: Negative except for HPI HEAD/FACE: Negative except for HPI EENT: Negative except for HPI RESPIRATORY: Negative except for HPI GASTROINTESTINAL/ABDOMINAL: Negative except for HPI GENITOURINARY: Negative except for HPI MUSCULOSKELETAL: Negative except for HPI INTEGUMENTARY: Negative except for HPI NEUROLOGICAL/PSYCH: Negative except for HPI HEMATOLOGIC/LYMPHATIC: Negative except for HPI All Systems Negative, Except as noted above. 13 point review of systems assessed and all negative except for above. Physical Exam Physical Exam Dictation Vital Signs reviewed General Appearance: Alert, oriented x 3, no acute distress, well developed, nourished. Head and Face: non-traumatic. Eyes: PERRL, pink conjunctivas, eyelid no trauma, anterior chamber with arcus senilis. Ears: Pinnas intact and no signs of trauma or erythema ear canals clear and no discharge TM no erythema Nose: No discharge, no bleeding. Oropharynx: Mouth normal, tongue pink, pharynx clear,no erythema, tonsils no exudates, no abscesses noted, mucous membrane moist Neck: Supple, non-tender, no thyromegaly, no masses, no JVD, no bruits Breast:Deferred Chest:No tenderness, no crepitus, no paradoxical movement, no retractions Lungs:Clear, well-ventilated, symmetric, no rales, no wheezing, no rhonchi, no stridor, good breath sounds bilaterally Heart: Regular rate, regular rhythm, no murmur, no gallops Vascular: no peripheral edema, Abdomen: Soft, positive bowel sounds, nondistended, no guarding, nontender, no rebound, no masses no hepatomegaly, no splenomegaly, no Cruz's sign, no hernias. Rectal: Deferred Genital: Deferred Neurological: Normal speech, motor function intact, sensory function intact Musculoskeletal: Neck nontender, full range of motion, back nontender, full range of motion, Extremities: nontender, full range of motion , splint in place to the right upper extremity, there is dry blood seeping through the splint Skin: Color pink, dry, no turgor, no rash, no lacerations, no abrasions, no contusions. Lymphatic: Deferred MDM MDM: The patient is a 79-year-old female presenting to the emergency department asking for an orthopedic referral. The patient was seen in our emergency department earlier this week after she sustained a fall. She was diagnosed with an olecranon fracture of the right elbow. She was splinted and told to follow up outpatient with Dr. Delgadillo. 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 Additionally, she reports bleeding through her right splint and wanted further evaluation. Otherwise the patient has no complaints Initial vital signs are unremarkable. On physical examination the patient has what appears to be blood seeping through the elbow splint. She still has sensation to her hand and is able to move her distal fingers. The splint was removed. After removing the splint there is a right elbow skin tear that appears to be superficial. There is mild amount of bleeding. The sk in tear was cleansed and repaired with Steri-Strips. Patient was resplinted. She was given referral to both Dr. Geronimo and Dr. Delgadillo for outpatient evaluation. Differential diagnosis: Fracture, contusion, wound evaluation There are no social concerns with this patient. Prescription drug management Prescriptions will include: none Medical management and examination interpretation discussions were had by me with other qualified healthcare professionals as indicated for the patient's care. ED Course Orders Procedure Category Date Status Time *Nursing CPOE 07/28/24 Transmitted Communication: 10:29 Elbow Splint SOPHIE 07/28/24 In Process 11:40 Vital Signs Date Time Temp Pulse Resp B/P (MAP) Pulse Ox O2 Delivery O2 Flow Rate FiO2 07/28/24 10:26 98.1 97 16 156/74 97 Room Air 0 DX & DISP Disposition: Discharge Departure Impression: Primary Impression: Skin tear of right elbow without complication Additional Impression: Fracture of olecranon process of right ulna without intraarticular extension Condition: Stable Additional Instructions: Your splint was reapplied today. There is a small skin tear to your right elbow which appears to be trickling blood. This was cleansed and wrapped in the emergency department. You will need to follow up with an integrated marketing specialist. I have given you a follow up with Dr. Yates. His office should be able to see as a walk-in Sunday through Sunday from 8:00 a.m. to 11:00 a.m.. I have also given you another option of following up with Dr. Delgadillo. Referrals: JULIANO SIERRA MD (PCP) LUDIVINA DELGADILLO MD, VISHWAS B MD Time of Disposition: 11:53 I have reviewed the case, and I agree with, Diagnosis and Plan I performed the substantive portion of the visit. I have reviewed and personally made and approve the management plan that is documented in the note by myself or the VALERIE. I acknowledge for responsibility for the patient's management plan. BLANCA TAYLOR Jul 28, 2024 10:33
[2024-07-28 12:21] VITALS: BP 151/73; PULSE 88; RESP 16; TEMP 98.1; O2SAT 97
== END 2024-07-28 12:52 | disposition home or self-care (01) ==
LOC: EDH 10:17
DX: S52.021A Displaced fracture of olecranon process without intraarticular extension of right ulna, initial encounter for closed fracture (principal); E11.9 Type 2 diabetes mellitus without complications; I10 Essential (primary) hypertension; I25.10 Atherosclerotic heart disease of native coronary artery without angina pectoris; Z79.02 Long term (current) use of antithrombotics/antiplatelets; Z79.84 Long term (current) use of oral hypoglycemic drugs; Z79.899 Other long term (current) drug therapy; Z95.810 Presence of automatic (implantable) cardiac defibrillator; W18.39XA Other fall on same level, initial encounter; Y93.89 Activity, other specified; Y92.89 Other specified places as the place of occurrence of the external cause; Y99.8 Other external cause status
CPT/HCPCS: 29105; 99283

== ENCOUNTER 2024-08-02 19:06 | Emergency (ER) | payer OTHER, MEDICARE ==
[~2024-08-02] VITALS: Ht 160 cm; Wt 63.5 kg
--- NOTE | 2024-08-02 20:32 | ERN ---
General Chief Complaint: Upper Extremity Pain/Injury Stated Complaint: RT ARM FRACTURE Time Seen by MD: 19:10 Source: patient History of Present Illness Initial Comments Patient is a 79-year-old female who fell onto her right elbow and suffered an olecranon fracture approximately a week ago. She was placed in the splint and discharged from the emergency room with follow-up with a an orthopedic surgeon. She comes back today because of concern of ecchymosis and skin staining in her right hand. No swelling no pain. Timing/Duration: 1 week Allergies: Coded Allergies: No Known Drug Allergies (Verified Allergy, Unknown, 05/23/24) adhesive tape (Unverified Allergy, Unknown, RASH ITCH, 05/23/24) Home Meds Active Scripts Minocycline HCl (Minocycline HCl) 100 Mg Capsule, 1 CAP PO BID for 5 Days, #10 CAP 0 Refills Prov:LUDIVINA MANCILLA MD 05/26/24 Clopidogrel Bisulfate (Clopidogrel) 75 Mg Tablet, 75 MG PO DAILY, #90 TAB 1 Refill Prov:JULIANO SIERRA MD 09/03/19 Nitroglycerin (Nitrostat) 0.4 Mg Tab.subl, 0.4 MG SL AD PRN for CHEST PAIN for 90 Days, #90 TAB.SL Prov:JULIANO SIERRA MD 09/02/19 Reported Medications Allopurinol (Allopurinol) 100 Mg Tablet, 1 TAB PO DAILY for 30 Days, #30 TAB 0 Refills 01/24/24 Furosemide (Furosemide) 20 Mg Tablet, 1 TAB PO AM for 30 Days, #30 TAB 0 Refills 01/24/24 Sucralfate (Sucralfate) 1 Gram Tablet, 1 GM PO BID, TAB 01/24/24 Trazodone HCl (Trazodone HCl) 50 Mg Tablet, 1 TAB PO HS for 30 Days, #30 TAB 0 Refills 01/24/24 Fenofibrate (Fenofibrate) 54 Mg Tablet, 1 TAB PO HS for 30 Days, #30 TAB 0 Refil ls 01/24/24 Levocetirizine Dihydrochloride (Levocetirizine Dihydrochloride) 5 Mg Tablet, 1 TAB PO HS for 30 Days, #30 TAB 0 Refills 01/24/24 Duloxetine HCl (Duloxetine HCl) 60 Mg Capsule.dr, 1 CAP PO HS for 30 Days, #30 CAP 0 Refills 01/24/24 Albuterol Sulfate (Ventolin Hfa) 90 Mcg Hfa.aer.ad, 2 PUFF IH BID PRN for w heezing for 30 Days, #18 GM 0 Refills 01/24/24 Sitagliptin Phosphate (Januvia) 50 Mg Tablet, 50 MG PO DAILY, TAB 03/12/20 Latanoprost/Pf (Latanoprost 0.005% Eye Drop) 7.5 Ml Drops, 1 DROP OP BID, DROP 09/02/19 Sotalol HCl (Sotalol) 80 Mg Tablet, 80 MG PO BID, TAB 01/09/17 Past Medical History Past Medical History: CAD, Diabetes-Type II, Heart Disease, Hypertension Medical History Other: pacemaker, right olacrenon fracture Past Surgical History: Pacer/AICD Surgical History Other: History of back surgery x 2 Social History Social History: Negative ROS Dictation Of systems is negative. Physical Exam Extremities Comment Patient's hand and wrist on the right indeed have discoloration consistent with a bleeding from her fracture and maturation of the subsequent bruising. There is no swelling there is no pain. Distal sensation and circulation is intact. MDM Patient needs to follow up with her primary care physician to schedule an appointment with a an orthopedic surgeon. ED Course Vital Signs Date Time Temp Pulse Resp B/P (MAP) Pulse Ox O2 Delivery O2 Flow Rate FiO2 08/02/24 20:35 98.1 85 16 160/75 98 Room Air* 0 21 08/02/24 19:08 98.1 88 16 163/78 97 Room Air DX & DISP Disposition: Discharge Departure Impression: Primary Impression: Fracture of olecranon process of right ulna without intraarticular extension Condition: Stable Additional Instructions: Please follow-up with the orthopedic surgeons, either Dr. Geronimo or Dr. Delgadillo. Referrals: JULIANO SIERRA MD (PCP) CELY MEAD MD Aug 02, 2024 20:32
[2024-08-02 20:35] VITALS: BP 160/75; PULSE 85; RESP 16; TEMP 98; O2SAT 98
--- NOTE | 2024-08-02 20:40 | NUR ---
PT PRESENTS TO ER PT EDUCATED NEEDED FOLLOW UP WITH ORTHO PREVIOUSLY ADVISED SPLINT REPLACED PROPERLY TO AVOID FURTHER SKIN IRRITATION CIRCULATION CHECKED WNL
--- NOTE | 2024-08-02 20:46 | NUR ---
PER PT ORIGINAL ORTHO WOULD NOT ACCEPT CASE PT TO FOLLOW UP ORTHO IN [place] SELF REFERAL
--- NOTE | 2024-08-02 20:47 | NUR ---
ADDITIONAL ORTHO REFERAL PROVIDED AT THIS TIME JON[facility]AN
== END 2024-08-02 20:49 | disposition home or self-care (01) ==
LOC: EDH 19:06
DX: S52.021A Displaced fracture of olecranon process without intraarticular extension of right ulna, initial encounter for closed fracture (principal); E11.9 Type 2 diabetes mellitus without complications; I11.9 Hypertensive heart disease without heart failure; I25.10 Atherosclerotic heart disease of native coronary artery without angina pectoris; Z79.02 Long term (current) use of antithrombotics/antiplatelets; Z79.84 Long term (current) use of oral hypoglycemic drugs; Z79.899 Other long term (current) drug therapy; Z95.810 Presence of automatic (implantable) cardiac defibrillator; X58.XXXA Exposure to other specified factors, initial encounter; Y93.89 Activity, other specified; Y92.89 Other specified places as the place of occurrence of the external cause; Y99.8 Other external cause status
CPT/HCPCS: 99281